=== PATIENT | female | born 1950 | race Caucasian/White ===

== ENCOUNTER 2017-08-19 17:47 | Inpatient (IN) | payer OTHER ==
[~2017-08-19] VITALS: Ht 170.2 cm; Wt 80.1 kg
[2017-08-19] VITALS (13 sets, daily range): BP systolic 84–166; BP diastolic 61–124
--- NOTE | ~2017-08-19 | EKG ---
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
--- NOTE | ~2017-08-19 | HC ---
[facility] [place] [address] CONSULTATION Name: HEDY SIMON Room #: 417-I ADM IN M.R.#: [id number] Admission: 08/19/17 Attend Phys: Florencio Dowell DO Discharge: Date of : 48 Report #: [id number] THIS REPORT FOR: //name// CC: Florencio Melton ENDOCRINE CONSULT LOCATION: Room 417, [facility]. Patient of Dr. Dowell. SUBJECTIVE: A 67-year-old white female admitted for pneumonia. The patient is currently improving. She is on high dose intravenous corticosteroids. She gives a limited history and there is limited information available in the patient's records. She apparently has had diabetes for approximately 20 years and has been on insulin for approximately 3 years. She is not on any current oral medication. She has no information regarding recent hemoglobin A1c. She does check her sugar "rarely," but does not remember the type of machine or the recent values. She is apparently on some unknown dosage of NPH insulin twice daily and also regular insulin, but again the dosages are unknown as is the degree of control. She is not on a specific diet. Otherwise, she is unable to give much pertinent current medical information. Glucoses have been significantly elevated since admission starting out at approximately 400. The patient was admitted with a diagnosis of "ketoacidosis;" however, there is no recorded evidence of ketosis or acidosis, but only hyperglycemia. CURRENT MEDICATIONS: At the time of consultation included sliding scale lispro. The patient is also on aspirin, duloxetine, atorvastatin, guaifenesin, trazodone, enoxaparin, famotidine, nystatin, potassium, fentanyl, acetaminophen, ondansetron, levofloxacin, vancomycin and the corticosteroids as mentioned above. OBJECTIVE: LABORATORY DATA: Hemoglobin A1c is 11.5%. Sodium 141, potassium 3.5, chloride 109, CO2 of 22, BUN 24, creatinine 7, glucose most recently was 221 on the sliding scale lispro as mentioned above, calcium 7.6, bilirubin 1.3, phosphorus 2.0, magnesium 2.1, alkaline phosphatase 81, SGPT 20, total protein 6.2, albumin 2.0. PHYSICAL EXAMINATION: VITAL SIGNS: Well-nourished, well-developed, obese 67-year-old white female, in no acute distress. The patient is alert and oriented x 3. VITAL SIGNS: She is afebrile. Height is reported to be 5 feet 7 and the patient is reported to weigh 190 pounds, heart rate 70 and regular, [place] [address] CONSULTATION Name: HEDY SIMON [facility].#: [id number] Admission: 08/19/17 Attend Phys: Florencio Dowell DO Discharge: Date of : 48 Report #: [id number] pressure 150/70. SKIN: Warm and moist without abnormalities. EYES: PERRL. CHEST: Shows scattered rhonchi, clearing with cough. HEART: Regular rhythm without murmurs, rubs or gallops. ABDOMEN: Benign. EXTREMITIES: Show trace pitting pedal edema bilaterally. NEUROLOGIC: Grossly intact. ASSESSMENT: 1. Diabetes mellitus, out of control, aggravated by obesity and most recently by infection and high dose corticosteroids. 2. Exogenous obesity with insulin resistance and hyperinsulinemia. PLAN: 1. Will evaluate more recent prior controlled hemoglobin A1c. 2. Will readjust diet with appropriate caloric restriction and dietary education. 3. Will initiate prandial lispro and basal glargine in an effort to improve glucose control and switch the patient over to a more appropriate and more efficacious insulin regimen than her prior NPH and regular insulin, and will attempt to convince her of the need for improved compliance in all areas to improve glucose control. Thank you very much for this consultation. I will continue to follow the patient with you for evaluation and treatment of diabetes mellitus. <ELECTRONICALLY SIGNED> By: Dion Barakat MD 08/23/17 1108 1336 1522 Dion Barakat MD /nt
--- NOTE | ~2017-08-19 | HC ---
[facility] [address] [address] CONSULTATION Name: HEDY SIMON Room #: 417-I [facility] IN .R.#: [id number] Admission: 08/19/17 Attend Phys: Florencio Dowell DO Discharge: Date of : 48 Report #: [id number] THIS REPORT FOR: //name// CC: Florencio Melton DATE OF SERVICE: 08/19/2017 REFERRING PROVIDER: Shantal Berry. REASON FOR CONSULTATION: Hypoxemic respiratory failure. CHIEF COMPLAINT: Shortness of breath. HISTORY OF PRESENT ILLNESS: Our group was asked to evaluate the patient urgently this evening due to significant hypoxemia. A pleasant 67-year-old woman with past pulmonary history significant for mild asthma and obstructive sleep apnea, has been in her usual state of health; however, about 10 days ago, had returned from a trip overseas to [facility] and came back with what sounds like influenza, was seen at urgent care with her primary care provider's office, was instructed she had influenza, started on Tamiflu, which she has been taking but continued to have some decline in overall health. did improve on similar treatment. She noted some green sputum ongoing. No significant fevers or chills. Some sweats. Also had stopped taking her insulin about 1 week ago because she had decreased appetite and not eating, presented to the Emergency Department with significant difficulties with lethargy, weakness and cough, was found to have profound hyperglycemia and metabolic acidosis, subsequently admitted, placed on DKA protocol and antibiotics for pneumonia, currently in bed, resting comfortably, however, has had high oxygen requirements since admission. ALLERGIES: include CLARITHROMYCIN. PAST MEDICAL HISTORY: 1. History of diabetes mellitus type 2, but takes insulin only she states for management. 2. History of asthma, severity not quantified. 3. Obstructive sleep apnea, on nocturnal CPAP. 4. Hypertension. 5. Hyperlipidemia. OUTPATIENT MEDICATIONS: Include trazodone, Tamiflu, lisinopril/hydrochlorothiazide, duloxetine, atorvastatin, guaifenesin, aspirin, and insulin. SOCIAL HISTORY: Very remote history of tobacco use. No alcohol consumption of [facility] [address] [place] [address] CONSULTATION Name: HEDY SIMON Room #: 417-I [facility] IN ..#: [id number] Admission: 08/19/17 Attend Phys: Florencio Dowell DO Discharge: Date of : 48 Report #: [id number] significance. Currently retired. Lives with her . FAMILY HISTORY: Negative for any significant pulmonary disease. REVIEW OF SYSTEMS: CONSTITUTIONAL: Some general malaise. No fevers, chills or sweats. ENT: Some upper respiratory congestion, no rhinorrhea, dysphagia or epistaxis. CARDIOVASCULAR: Some chest pain with coughing. GASTROINTESTINAL: No nausea, vomiting, abdominal pain or diarrhea. GENITOURINARY: No dysuria, no frequency or hematuria. INTEGUMENT: Denies any rash. MUSCULOSKELETAL: Denies any joint pains or swelling. Some generalized weakness and malaise. PHYSICAL EXAMINATION: VITAL SIGNS: Afebrile, pulse 100, respiratory rate 20, blood pressure 148/63, oxygen saturation 99% on nonrebreather mask. GENERAL: This is an obese, elderly woman, does not appear in any distress. HEENT: Clear oropharynx. NECK: Supple, no lymphadenopathy. LUNGS: Coarse rhonchi heard on inspiration and expiration. CARDIOVASCULAR: Heart was regular. No murmurs noted. ABDOMEN: Soft, nontender, no masses. EXTREMITIES: Without significant edema. INTEGUMENT: Without rash. LABORATORY DATA: Sodium 139, potassium 2.9, chloride 101, bicarbonate 28, BUN 23, creatinine 0.9, glucose 206, albumin 2.3, glucose was 369. Urinalysis significant for elevated urine glucose, ketones, serum ketones pending. Arterial blood gas on nonrebreather mask revealed pH 7.42, pCO2 of 30, pO2 of 82 and bicarbonate of 19 and lactate 2.3. White blood cell count 8000, hemoglobin 14, hematocrit 41, platelet count 155, 24% band forms. IMPRESSION: 1. Pneumonia as evidenced by chest x-ray with basilar infiltrates. 2. Diabetic ketoacidosis. 3. Asthma with acute exacerbation. 4. Poorly controlled diabetes mellitus, likely at baseline, uncertain why she is on insulin only therapy. 5. Multiple electrolyte disturbances due to above. SUGGEST: 1. DKA protocol. 2. Hydration with IV fluids. 3. Noninvasive positive pressure ventilation with BiPAP overnight, particularly since the patient normally on Pap therapy with sleep. [address] [address] CONSULTATION Name: HEDY SIMON Room #: 417-I ADM IN M.R.#: [id number] Admission: 08/19/17 Attend Phys: Florencio Dowell DO Discharge: Date of : 48 Report #: [id number] 4. Systemic steroids. 5. Continue with current antibiotics. 6. Add vancomycin as the patient may have a post-influenza staph. 7. Check MRSA screen. 8. Sputum cultures. 9. Blood cultures. 10. Nasal swab for respiratory viral panel. 11. Continue Tamiflu. 12. Further recommendations to follow. Thank you for requesting our suggestions. Discussed with nursing and patient at the bedside. All questions answered. <ELECTRONICALLY SIGNED> By: Simone Randolph MD 08/23/17 1820 0023 1519 Simone Randolph MD /nt
[~2017-08-19 17:47] MED LIST: AMARYL4 MG PO; CHLORTHALIDONE25 MG PO; JANUMET XR 1001 EACH PO; KLOR-CON 1010 MEQ PO; LIPITOR 20 MG T20 M1 PO; LISINOPRIL5 MG PO; METFORMIN HCL500 MG PO; METOPROLOL SUCC50 MG PO
[2017-08-19 18:28] LABS: MCH 31.1 pg (26.0-34.0); MCHC 34.2 g/dL (28.0-37.0); MCV 90.9 fL (80.0-100.0); PLATELET COUNT 155 thou/uL (150-400); RBC 4.51 mil/uL (4.20-5.00); RDW 13.2 % (10.5-14.5); WBC 8.2 thou/uL (4.0-11.0)
[2017-08-19 18:33] LABS: BE(vivo) -4.1 mmol/L (-2 to +3); HCO3 19.2 mmol/L (22.0-26.0); PCO2 30.4 mmHg (35.0-45.0); PO2 82.5 mmHg (80.0-100.0); pH 7.418 (7.360-7.450); sO2 96.4 % (92.0-98.0)
[2017-08-19 18:41] LABS: ANION GAP 21 mmol/L (7-16); BUN 27 mg/dL (7-18); CALCIUM 8.8 mg/dL (8.5-10.1); CHLORIDE 90 mmol/L (98-107); CO2 21 mmol/L (21-32); CREATININE 1.1 mg/dL (0.6-1.0); GLUCOSE 479 mg/dL (74-106); POTASSIUM 3.6 mmol/L (3.5-5.1); SODIUM 132 mmol/L (136-145)
[2017-08-19] MEDS ORDERED: LISINOPRIL-HCT1 EACH PO (18:50)
[2017-08-19] MEDS ORDERED: OSELTAMIVIR PHO75 MG PO (18:50)
[2017-08-19] MEDS ORDERED: TRAZODONE HCL100 MG PO (18:50)
[2017-08-19] MEDS ORDERED: CYMBALTA60 MG PO (18:50)
[2017-08-19] MEDS ORDERED: MUCINEX1200 MG PO (18:51)
[2017-08-19] MEDS ORDERED: LIPITOR80 MG PO (18:51)
[2017-08-19 18:52] LABS: TROPONIN-I < 0.04 ng/mL (<0.06)
[2017-08-19] MEDS ORDERED: NOVOLIN R100 UNIT/3 (18:53)
[2017-08-19] MEDS ORDERED: ASPIR 8181 MG PO (18:53)
[2017-08-19] MEDS ORDERED: NOVOLIN N100 UNIT/3 (18:54)
[2017-08-19 19:02] LABS: ABSOLUTE NEUTROPHILS 7.1 thou/uL (1.4-8.2)
[2017-08-19 20:48] LABS: URINE BLOOD TRACE (Negative); URINE CLARITY CLEAR; URINE COLOR YELLOW; URINE GLUCOSE-RANDOM* 3+ (Negative); URINE KETONES 3+ (Negative); URINE LEUKOCYTES-REFLEX NEGATIVE (Negative); URINE NITRITE-REFLEX NEGATIVE (Negative); URINE PROTEIN (DIPSTICK) TRACE (Negative); URINE UROBILINOGEN 0.2 E.U./dl (0.2-1.0)
[2017-08-19 20:53] LABS: ICTOTEST (BILI CONFIRMATORY) Negative (Negative); URINE BILIRUBIN NEGATIVE (Negative)
[2017-08-19 21:56] LABS: ALBUMIN 3.2 g/dL (3.4-5.0); CALCIUM 8.7 mg/dL (8.5-10.1); CREATININE 1.2 mg/dL (0.6-1.0); PHOSPHORUS 3.4 mg/dL (2.5-4.9); POTASSIUM 3.6 mmol/L (3.5-5.1)
[2017-08-19 23:46] LABS: ALBUMIN 2.3 g/dL (3.4-5.0); CALCIUM 7.5 mg/dL (8.5-10.1); CREATININE 0.9 mg/dL (0.6-1.0); PHOSPHORUS 1.6 mg/dL (2.5-4.9)
[2017-08-19 23:47] LABS: POTASSIUM 2.9 mmol/L (3.5-5.1)
[2017-08-20] VITALS (29 sets, daily range): BP systolic 110–155; BP diastolic 51–107
[2017-08-20 04:18] LABS: HEMATOCRIT 33.8 % (37.0-47.0); MCH 30.9 pg (26.0-34.0); MCHC 35.1 g/dL (28.0-37.0); PLATELET COUNT 126 thou/uL (150-400); RBC 3.84 mil/uL (4.20-5.00); RDW 13.1 % (10.5-14.5); WBC 7.5 thou/uL (4.0-11.0)
[2017-08-20 04:33] LABS: ALBUMIN 2.4 g/dL (3.4-5.0); CALCIUM 7.8 mg/dL (8.5-10.1); CREATININE 0.7 mg/dL (0.6-1.0); MAGNESIUM 1.8 mg/dL (1.8-2.4); PHOSPHORUS 1.1 mg/dL (2.5-4.9); TOTAL BILIRUBIN 1.3 mg/dL (<0.1-1.0); TOTAL PROTEIN 6.2 g/dL (6.4-8.2)
[2017-08-20 04:34] LABS: HEMOGLOBIN 11.8 gm/dL (12.0-15.0); POTASSIUM 3.9 mmol/L (3.5-5.1)
[2017-08-20 05:10] LABS: ABSOLUTE NEUTROPHILS 6.1 thou/uL (1.4-8.2); METAMYELOCYTES 1 %
[2017-08-20 08:38] LABS: BE(vivo) -0.4 mmol/L (-2 to +3); HCO3 22.4 mmol/L (22.0-26.0); PCO2 30.9 mmHg (35.0-45.0); PO2 268.3 mmHg (80.0-100.0); pH 7.478 (7.360-7.450); sO2 99.7 % (92.0-98.0)
[2017-08-20 08:50] LABS: ALBUMIN 2.3 g/dL (3.4-5.0); CREATININE 0.7 mg/dL (0.6-1.0); PHOSPHORUS 1.5 mg/dL (2.5-4.9); POTASSIUM 3.8 mmol/L (3.5-5.1)
[2017-08-20 13:41] LABS: ALBUMIN 2.3 g/dL (3.4-5.0); CALCIUM 7.3 mg/dL (8.5-10.1); CREATININE 0.7 mg/dL (0.6-1.0); MAGNESIUM 1.9 mg/dL (1.8-2.4); PHOSPHORUS 1.5 mg/dL (2.5-4.9); POTASSIUM 3.7 mmol/L (3.5-5.1)
[2017-08-20 17:16] LABS: ALBUMIN 2.3 g/dL (3.4-5.0); CALCIUM 7.6 mg/dL (8.5-10.1); CREATININE 0.7 mg/dL (0.6-1.0); PHOSPHORUS 1.6 mg/dL (2.5-4.9); POTASSIUM 4.2 mmol/L (3.5-5.1)
[2017-08-20 20:56] LABS: ALBUMIN 1.9 g/dL (3.4-5.0); CALCIUM 7.2 mg/dL (8.5-10.1); CREATININE 0.8 mg/dL (0.6-1.0); MAGNESIUM 1.8 mg/dL (1.8-2.4); PHOSPHORUS 1.7 mg/dL (2.5-4.9); POTASSIUM 3.5 mmol/L (3.5-5.1)
[2017-08-21] VITALS (13 sets, daily range): BP systolic 109–163; BP diastolic 49–109
[2017-08-21 01:01] LABS: ALBUMIN 1.9 g/dL (3.4-5.0); CALCIUM 7.1 mg/dL (8.5-10.1); CREATININE 0.8 mg/dL (0.6-1.0); PHOSPHORUS 1.6 mg/dL (2.5-4.9); POTASSIUM 3.5 mmol/L (3.5-5.1)
[2017-08-21 05:05] LABS: HEMATOCRIT 32.4 % (37.0-47.0); HEMOGLOBIN 11.2 gm/dL (12.0-15.0); MCHC 34.5 g/dL (28.0-37.0); MCV 89.7 fL (80.0-100.0); PLATELET COUNT 144 thou/uL (150-400); RBC 3.61 mil/uL (4.20-5.00); WBC 10.9 thou/uL (4.0-11.0)
[2017-08-21 05:27] LABS: CALCIUM 7.4 mg/dL (8.5-10.1); CREATININE 0.8 mg/dL (0.6-1.0); POTASSIUM 3.7 mmol/L (3.5-5.1)
[2017-08-21 06:21] LABS: ABSOLUTE NEUTROPHILS 9.6 thou/uL (1.4-8.2); METAMYELOCYTES 2 %; NUCLEATED RBCS 1 /100WBC; PROMYELOCYTES 1 %
[2017-08-21 11:41] LABS: CALCIUM 7.7 mg/dL (8.5-10.1); CREATININE 0.8 mg/dL (0.6-1.0); MAGNESIUM 2.1 mg/dL (1.8-2.4); POTASSIUM 3.7 mmol/L (3.5-5.1)
[2017-08-21 16:13] LABS: GLYCOHEMOGLOBIN (HGB A1C) 11.6 % (4.8-5.6)
[2017-08-22 03:39] VITALS: BP 138/67
[2017-08-22 06:39] LABS: HEMATOCRIT 32.5 % (37.0-47.0); HEMOGLOBIN 11.2 gm/dL (12.0-15.0); MCH 30.9 pg (26.0-34.0); MCHC 34.5 g/dL (28.0-37.0); MCV 89.6 fL (80.0-100.0); PLATELET COUNT 157 thou/uL (150-400); RBC 3.63 mil/uL (4.20-5.00); WBC 16.5 thou/uL (4.0-11.0)
[2017-08-22 06:47] LABS: CALCIUM 7.6 mg/dL (8.5-10.1); CREATININE 0.7 mg/dL (0.6-1.0); POTASSIUM 3.5 mmol/L (3.5-5.1)
[2017-08-22 07:00] VITALS: BP 152/74
[2017-08-22 08:53] LABS: ABSOLUTE NEUTROPHILS 13.9 thou/uL (1.4-8.2); METAMYELOCYTES 2 %; MYELOCYTES 2 %; PLATELET ESTIMATE NORMAL
[2017-08-22 16:45] VITALS: BP 175/100
[2017-08-22 20:10] VITALS: BP 167/96
[2017-08-23 04:05] VITALS: BP 158/91
[2017-08-23 08:10] VITALS: BP 173/90
[2017-08-23 10:11] LABS: HEMATOCRIT 36.2 % (37.0-47.0); HEMOGLOBIN 12.3 gm/dL (12.0-15.0); MCH 30.1 pg (26.0-34.0); MCHC 34.1 g/dL (28.0-37.0); MCV 88.3 fL (80.0-100.0); RBC 4.1 mil/uL (4.20-5.00); RDW 13.3 % (10.5-14.5); WBC 21.9 thou/uL (4.0-11.0)
[2017-08-23 10:26] LABS: CALCIUM 7.8 mg/dL (8.5-10.1); CREATININE 0.8 mg/dL (0.6-1.0); MAGNESIUM 1.8 mg/dL (1.8-2.4); POTASSIUM 3.6 mmol/L (3.5-5.1)
[2017-08-23 19:57] VITALS: BP 150/80
[2017-08-24 04:12] VITALS: BP 129/58
[2017-08-24 05:21] LABS: CALCIUM 7.4 mg/dL (8.5-10.1); CREATININE 0.7 mg/dL (0.6-1.0); MAGNESIUM 1.7 mg/dL (1.8-2.4); POTASSIUM 3.2 mmol/L (3.5-5.1)
[2017-08-24 05:31] LABS: HEMATOCRIT 37.2 % (37.0-47.0); HEMOGLOBIN 12.4 gm/dL (12.0-15.0); MCH 29.9 pg (26.0-34.0); MCHC 33.4 g/dL (28.0-37.0); MCV 89.7 fL (80.0-100.0); RBC 4.15 mil/uL (4.20-5.00); RDW 13.5 % (10.5-14.5)
[2017-08-24 07:15] VITALS: BP 134/62
[2017-08-24 07:16] VITALS: BP 134/62
[2017-08-24] MEDS ORDERED: NYAMYC15 GM TOP (17:28)
[2017-08-24] MEDS ORDERED: MUPIROCIN22 GM NASAL (17:28)
[2017-08-24] MEDS ORDERED: FAMOTIDINE 10 M10 MG PO (17:28)
[2017-08-24] MEDS ORDERED: LEVAQUIN 750 M750 MG PO (17:28)
[2017-08-24] MEDS ORDERED: PREDNISONE 20 M20 M1 PO (17:28)
[2017-08-24] MEDS ORDERED: NOVOLOG FL100 UNIT/M SUBQ (17:28)
[2017-08-24] MEDS ORDERED: PROBIOTIC1 EAC1 PO (17:28)
[2017-08-24] MEDS ORDERED: LEVEMIR SUBQ (17:28)
[2017-08-24] MEDS ORDERED: VENTOLIN HFA 1818 GM INH (17:33)
[2017-08-24 17:42] VITALS: BP 134/62
== END 2017-08-24 18:26 | disposition home or self-care (01) | DRG 871 ==
LOC: ER 17:47 → ICU 19:50 → EROBS 19:50 → ICU 21:25 → 4E 08-21 21:27 → ENTRNSPT 08-24 18:01 → 4E 08-24 18:26
PROVIDERS: Emergency Medicine; Family Medicine; Internal Medicine; Nurse Practitioner Family
PROC: 5A09357 Assistance with Respiratory Ventilation, Less than 24 Consecutive Hours, Continuous Positive Airway Pressure (ICD-10-PCS; principal; 2017-08-20)
PROC: 5A09357 Assistance with Respiratory Ventilation, Less than 24 Consecutive Hours, Continuous Positive Airway Pressure (ICD-10-PCS; 2017-08-21)
DX: A41.9 Sepsis, unspecified organism (principal); E11.10 Type 2 diabetes mellitus with ketoacidosis without coma; J18.9 Pneumonia, unspecified organism; J96.01 Acute respiratory failure with hypoxia; J45.901 Unspecified asthma with (acute) exacerbation; E11.65 Type 2 diabetes mellitus with hyperglycemia; G47.33 Obstructive sleep apnea (adult) (pediatric); I10 Essential (primary) hypertension; E78.5 Hyperlipidemia, unspecified; E66.09 Other obesity due to excess calories; G47.00 Insomnia, unspecified; Z79.899 Other long term (current) drug therapy; Z87.891 Personal history of nicotine dependence; Z68.27 Body mass index [BMI] 27.0-27.9, adult; Z98.49 Cataract extraction status, unspecified eye; Z88.1 Allergy status to other antibiotic agents; Z79.4 Long term (current) use of insulin
CPT/HCPCS: 10078; 10783

== ENCOUNTER 2020-12-08 17:50 | Inpatient (IN) | payer OTHER ==
[2020-12-08] VITALS (8 sets, daily range): BP systolic 124–160; BP diastolic 62–92
[~2020-12-08] VITALS: Ht 167.6 cm; Wt 82.8 kg
--- NOTE | ~2020-12-08 | EMS ---
[address] [address] EMS Patient Care Report Name: HEDY SIMON Room #: REG [facility]#: [id number] Admission: 12/08/20 Attend Phys: Discharge: Date of : 48 Report #: [id number] THIS REPORT FOR: //name// Report Transmitted: 12/08/2020 19:05 EMS Care Summary [facility] MED-ACT Incident [id number] @ 12/08/2020 17:07 Incident Location [address] [place] [address] Patient HEDY SIMON Female, 70 Years 1950 Patient Address [address] [place] [address] Patient History Diabetes, Chief Complaint Altered Mental Status Disposition Transported No Lights/Ethel Dispatch Reason Falls Transported To [facility] Narrative On EMS arrival, pt found lying supine on the floor incontinent of urine and stool. Pt's reports that the last time he saw her was around 1800 last night. He reports that she tends to sleep in and he got worried about her so he went to check on her, finding her on the floor. He reports that the pt was acting normal last night and had no complaints at the time. He also reports the pt is a poorly managed diabetic as well. Pt is painfully responsive at this time. Pt has non-purposeful movements and repeatedly unintentionally moves the mask placed on her face. Pt's skin was very dry and pt was found to [address] [place] [address] EMS Patient Care Report Name: HEDY SIMON Room #: [facility].#: [id number] Admission: 12/08/20 Attend Phys: Discharge: Date of : 48 Report #: [id number] have a "Hi" reading on the glucometer. Pt showed no signs of outward injury and nothing was found on physical exam. Pt was rolled and placed on a tarp and moved downstairs to the cot. En route, an IV was started and the pt was given 500cc's of normal saline. Pt was also shivering at this time and did say one understandable word, "Cold." Pt was covered more and heat was turned up at this point. Accurate vitals were difficult to obtain due to pt's shivering and non-purposeful movements. Pt transported to ED room 12. Pt transferred to ED bed via sheet drag. Pt left with rails up and staff in attendance. Nurse in ED reports pt looks familiar and states "I think she's been in here for DKA before." Initial Vitals @17:35P: 125,BP: 84/65,SpO2: 95, @17:29P: 76,Glucose: -2,SpO2: 68, @17:35SpO2: 90,WI Suspected: false @17:42P: 124,BP: 154/107,SpO2: 93, @PTAP: 110,R: 20,BP: 147/79,Pain: 0/10,GCS: 8,Temp: 98.2F,Glucose: -2,SpO2: 95,Revised Trauma: 10, Assessments @17:16MENTAL:Person Oriented,Time Oriented,Place Oriented,Event Oriented,SKIN:Pale,Other,HEENT:Eyes: Left Pupil: 3-mm,Eyes: Right Pupil: 3-mm,Head/Face: No Abnormalities,Neck/Airway: No Abnormalities,LUNG SOUNDS:ABDOMEN:PELVIS//GI:Incontinence,EXTREMITIES:PULSE:NEURO: Impression Diabetic Hyperglycemia Procedures @17:20Surgical Mask on Patient@17:3512-Lead ECGResponse: UnchangedSucceeded@17:28Normal Saline (.9% NaCl) 500cc (20 ga) Site: Hand-RightResponse: UnchangedSucceeded Timeline MACHINE SET UP,BP: 147/79 M,PULSE: 110,RR: 20 R,SPO2: 95 Ox,ETCO2: ,BG: -2,PAIN: 0,GCS: 8, 17:05,Call Received 17:05,Psap Call 17:07,Dispatched 17:08,En Route 17:13,On Scene 17:15,At Patient 17:20,Surgical Mask on Patient, 17:28,Normal Saline (.9% NaCl) 500cc 20 ga Site: Hand-Right,Response: UnchangedSucceeded, [address] [address] EMS Patient Care Report Name: HEDY SIMON Room #: REG [place]#: [id number] Admission: 12/08/20 Attend Phys: Discharge: Date of : 48 Report #: [id number] 17:29,BP: / M,PULSE: 76,RR: R,SPO2: 68 Ox,ETCO2: ,BG: -2,PAIN: ,GCS: , 17:34,Depart Scene 17:35,12-Lead ECG,Response: UnchangedSucceeded, 17:35,BP: / M,PULSE: ,RR: R,SPO2: 90 Ox,ETCO2: ,BG: ,PAIN: ,GCS: , 17:35,BP: 84/65 M,PULSE: 125,RR: R,SPO2: 95 Ox,ETCO2: ,BG: ,PAIN: ,GCS: , 17:42,BP: 154/107 M,PULSE: 124,RR: R,SPO2: 93 Ox,ETCO2: ,BG: ,PAIN: ,GCS: , 17:46,At Destination 18:27,Call Closed Disclaimer v1.1 Copyright 2020 [employer] This EMS Care Summary contains data elements from the applicable legal record (which may be displayed differently). It is designed to provide pertinent information for the following purposes: continuity of care, clinical quality, and state data reporting. The complete legal record is available to ED staff and administrators of the receiving hospital in [employer]'s Patient Tracker. All data is provided "as is."
--- NOTE | ~2020-12-08 | HC ---
[facility] [place] [address] CONSULTATION Name: HEDY SIMON Room #: 361-P ADM IN M.R.#: [id number] Admission: 12/08/20 Attend Phys: Jonah Gardner MD Discharge: Date of : 48 Report #: [id number] THIS REPORT FOR: cc: Gina Melton MD, Julie MD Khosla,Ty Vail MD ~ DOC #: [id number] Ty Matt MD DATE OF SERVICE: 12/10/2020 HISTORY OF PRESENT ILLNESS: A 70-year-old female patient who was seen by me because of speech difficulty was noticed on her today and consultation is evaluate the patient for a CVA. Patient does not provide any reliable history. I called the number for the , but he did not answer. So history is from the record. It looks like this patient has numerous metabolic problems. She was brought to the emergency room after a fall, but when she came there looks like her blood sugar was very high. She also has sepsis. She is being followed by ID. All along, it was noted that she was severely encephalopathic. It was noticed that she was having some speech difficulty and suggestion of aphasia that is why Neurology consultation was requested. She is able to talk, but does not give any reliable history. Diagnosis, which has been considered here is diabetic ketoacidosis, acute kidney injury, hypoxemic respiratory failure. Her sodium is somewhat high and she has been found to have new onset of atrial fibrillation as I understand from the records. REVIEW OF SYSTEMS: This is a relevant 14 point review of system I can get in this patient looks like multiple cardiology consultant is following this patient. PAST MEDICAL HISTORY: Unavailable from the patient. I do not know what the cognitive status is and I cannot reach the patient's to see what the premorbid cognitive status was. FAMILY AND SOCIAL HISTORY: Unavailable except for the fact that she is . PHYSICAL EXAMINATION: Pretty limited. She is awake. She talks. She becomes frustrated pretty soon and sometimes she follows simple commands. Her mentation is not good enough to do any good neurological examination on this patient, but I think she can move both sides. I do not know about hemianopsia, but does not look like she has a facial palsy. Her blood pressure is running about 149/68, pulse is 75, temperature is 97.8. LABORATORY DATA: White count is high, platelet count is somewhat low. Her MRI was scheduled, but for some reason is not done yet. We will check what happen tomorrow. IMPRESSION AND PLAN: This patient probably has encephalopathy. I think it will [address] [address] CONSULTATION Name: HEDY SIMON Dodie Room #: 361-[facility] IN .R.#: [id number] Admission: 12/08/20 Attend Phys: Jonah Gardner MD Discharge: Date of : 48 Report #: [id number] be desirable to exclude the possibility of CVA in this patient, especially in light of the fact that she has a new atrial fibrillation. Her MRI was scheduled, but this is not done yet and we will check tomorrow what happened. I will ask Dr. Akhtar to follow up this patient with you from tomorrow. Thank you very much for this referral. MD NNEKA Leonardo/HAIR By: [id number] [id number] Ty Matt MD /nt
[~2020-12-08 17:50] MED LIST changes: +ASPIR 8181 MG PO; +CYMBALTA60 MG PO; +FAMOTIDINE 10 M10 MG PO; +LEVAQUIN 750 M750 MG PO; +LEVEMIR SUBQ; +LIPITOR80 MG PO; +LISINOPRIL-HCT1 EACH PO; +MUCINEX1200 MG PO; +MUPIROCIN22 GM NASAL; +NOVOLIN N100 UNIT/3; +NOVOLIN R100 UNIT/3; +NOVOLOG FL100 UNIT/M SUBQ; +NYAMYC15 GM TOP; +OSELTAMIVIR PHO75 MG PO; +PREDNISONE 20 M20 M1 PO; +PROBIOTIC1 EAC1 PO; +TRAZODONE HCL100 MG PO; +VENTOLIN HFA 1818 GM INH
[2020-12-08 18:06] LABS: BE(vivo) -12.1 mmol/L (-2 to +3); HCO3 12.4 mmol/L (22.0-26.0); PCO2 26.4 mmHg (35.0-45.0); pH 7.291 (7.360-7.450); sO2 92.3 % (92.0-98.0)
[2020-12-08 18:18] LABS: URINE BILIRUBIN NEGATIVE (Negative); URINE BLOOD 2+ (Negative); URINE CLARITY CLEAR; URINE COLOR YELLOW; URINE GLUCOSE-RANDOM* 3+ (Negative); URINE KETONES 1+ (Negative); URINE LEUKOCYTES-REFLEX NEGATIVE (Negative); URINE NITRITE-REFLEX NEGATIVE (Negative); URINE PROTEIN (DIPSTICK) 3+ (Negative); URINE UROBILINOGEN 0.2 E.U./dl (0.2-1.0)
[2020-12-08 18:28] LABS: AMP/METHAMP Negative (Negative); BARBITURATES Negative (Negative); BENZODIAZEPINES Negative (Negative); COCAINE Negative (Negative); METHADONE Negative (Negative); OPIATES Negative (Negative); PCP Negative (Negative)
[2020-12-08 18:30] LABS: FINE GRANULAR CASTS 0-3 Few /LPF (None Seen)
[2020-12-08 18:31] LABS: CRYSTALS None Seen /LPF (None Seen); SQUAMOUS 0-3 Few /LPF (0-3); URINE RBC 3-10 Few /HPF (NONE SEEN); URINE WBC-REFLEX 6-15 Few /HPF (0-5)
[2020-12-08 18:43] LABS: ABSOLUTE NEUTROPHILS 15.2 thou/uL (1.4-8.2); BASOPHILS 0.4 % (0.0-2.0); HEMATOCRIT 48.4 % (37.0-47.0); HEMOGLOBIN 15.7 gm/dL (12.0-15.0); LYMPHOCYTES 3.7 % (24.0-44.0); MCH 30.9 pg (26.0-34.0); MCHC 32.3 g/dL (28.0-37.0); MCV 95.5 fL (80.0-100.0); MONOCYTES 3.4 % (1.0-8.0); PLATELET COUNT 234 thou/uL (150-400); POLYS 92.5 % (36.0-66.0); RBC 5.07 mil/uL (4.20-5.00); RDW 13.5 % (10.5-14.5); WBC 16.4 thou/uL (4.0-11.0)
[2020-12-08 19:06] LABS: ALBUMIN 3.3 g/dL (3.4-5.0); CALCIUM 9.4 mg/dL (8.5-10.1); CREATININE 2.1 mg/dL (0.6-1.0); DIRECT BILIRUBIN 0.2 mg/dL (<0.1-0.2); MAGNESIUM 2.2 mg/dL (1.8-2.4); PHOSPHORUS 6.8 mg/dL (2.6-4.7); POTASSIUM 4.3 mmol/L (3.5-5.1); TOTAL BILIRUBIN 1.2 mg/dL (0.2-1.0); TOTAL PROTEIN 7.4 g/dL (6.4-8.2); TROPONIN-I 0.27 ng/mL (<0.06)
--- NOTE | 2020-12-08 23:52 | NUR ---
PT TRANSPORTED FROM ER TO ICU 244 @ 2230. PT IS STILL UNRESPONSIVE AND UNABLE TO SIGN CONSENTS OR PARTICIPATE IN CARE. PT IS CURRENTLY ON DKA PROTOCOL. RN SPOKE TO JOSELO PEREZ CIRCUS ROUSTABOUT AND SPOKE TO HER. SHE WANTS TO DO DKA PROTOCOL BUT INSTEAD OF RUNNING FLUIDS AT 250 RUN IT AT 150ML/HR AND GIVE ONE TIME DOSE OF LASIX. SHE IS MORE CONCERNED ABOUT CONTROLLING HER DKA FIRST AND IS OK WITH HOLDING OFF HER ABX UNTIL LATER. CIRCUS ROUSTABOUT IS AWARE TO PT HAS ONLY A SINGLE IV 22 AND IS OK WITH PUTTING IN CONSULT FOR VASCULAR TEAM BUT IS ASKING IF SOMEONE FROM ED TO START ANOTHER LINE RN/OR PHYSICIAN. ICU X 2 HAVE TRIED MULTIPLE TIMES WITH NO LUCK. CONTINUE WITH PLAN OF CARE
[2020-12-09] VITALS (56 sets, daily range): BP systolic 116–171; BP diastolic 51–114
[2020-12-09 00:09] LABS: ALBUMIN 2.8 g/dL (3.4-5.0); CALCIUM 8.6 mg/dL (8.5-10.1); CREATININE 2.2 mg/dL (0.6-1.0); MAGNESIUM 1.9 mg/dL (1.8-2.4); PHOSPHORUS 2.7 mg/dL (2.5-4.9); POTASSIUM 3.9 mmol/L (3.5-5.1)
[2020-12-09] MEDS ORDERED: ROSUVASTATIN CA20 MG (00:51)
[2020-12-09] MEDS ORDERED: JANUMET XR 1001 EACH (00:52)
[2020-12-09] MEDS ORDERED: DONEPEZIL HCL 55 M1 (00:53)
[2020-12-09] MEDS ORDERED: BASAGLAR K100 UNIT/1 SQ (00:56)
[2020-12-09] MEDS ORDERED: BENTYL 10 MG CA10 M1 (00:56)
[2020-12-09] MEDS ORDERED: LISINOPRIL5 MG PO (00:58)
[2020-12-09 04:39] LABS: ALBUMIN 2.8 g/dL (3.4-5.0); CALCIUM 9.1 mg/dL (8.5-10.1); CREATININE 2.1 mg/dL (0.6-1.0); PHOSPHORUS 1.9 mg/dL (2.6-4.7); POTASSIUM 3.3 mmol/L (3.5-5.1)
--- NOTE | 2020-12-09 06:37 | EKG ---
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: : 1950 Requested By: Ata Lema Order Number: [id number] MD: Simone Laboy Measurements Intervals [place] Rate: 125 P: 0 PA: 81 QRS: 38 QRSD: 147 T: 135 QT: 399 QTc: 576 Interpretive Statements Sinus tachycardia Left bundle branch block Compared to ECG 08/19/2017 18:13:20 Left bundle-branch block now present Atrial premature complex(es) no longer present Electronically Signed On 12-09-2020 6:37:28 CDT by Simone Laboy [email or web address] <ELECTRONICALLY SIGNED> By: Simone Laboy MD, [facility] 12/09/20 0637 06 06 Simone Laboy MD, [facility] /EPI
--- NOTE | 2020-12-09 11:00 | NUR ---
chart review. discussed during los and am rounds. possible will be able to dc home in few days. lives home with her spouse. has chest tube, id consulted. unable to visit with her rt resting in room with eyes closed. will cont following as needed for dc needs. no visitor at bedside.
--- NOTE | 2020-12-09 11:36 | EKG ---
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: SANTOS : 1950 Requested By: Shantal Berry Order Number: [id number] : Simone Laboy Measurements Intervals [place] Rate: 140 P: -49 WI: 41 QRS: 103 QRSD: 146 T: -63 QT: 350 QTc: 534 Interpretive Statements AFIB Prolonged QT interval Baseline wander in lead(s) III,aVL,V1 Compared to ECG 12/08/2020 18:07:29 Prolonged QT interval now present Electronically Signed On 12-09-2020 11:35:48 CDT by Simone Laboy [email or web address] <ELECTRONICALLY SIGNED> By: Simone Laboy MD, [facility] 12/09/20 1135 0645 0645 Simone Laboy MD, [facility] /EPI
--- NOTE | 2020-12-09 11:38 | EKG ---
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: GALA : 1950 Requested By: Simone Laboy Order Number: [id number] MD: Simone Laboy Measurements Intervals [place] Rate: 83 P: 67 NV: 130 QRS: 85 QRSD: 157 T: -75 QT: 467 QTc: 549 Interpretive Statements Sinus rhythm Left ventricular hypertrophy Anterior Q waves, possibly due to LVH Prolonged QT interval Compared to ECG 12/09/2020 06:45:49 Left ventricular hypertrophy now present Q waves now present Sinus tachycardia no longer present Electronically Signed On 12-09-2020 11:38:02 CDT by Simone Laboy [email or web address] <ELECTRONICALLY SIGNED> By: Simone Laboy MD, [facility] 12/09/20 1138 1053 1053 Simone Laboy MD, [facility] /EPI
--- NOTE | 2020-12-09 13:32 | NUR ---
DR. REYNA CHU. RE. PT AGITATED. WORD SALAD. AWAITING CALL BACK
--- NOTE | 2020-12-09 13:33 | NUR ---
DR. CHOU PAGED. RE HEPARIN ORDERED BUT PT EXTREMELY AGGITATED AND HAVING WORD SALAD. MOVING ALL EXTREMITIES EQUALLY .
--- NOTE | 2020-12-09 14:03 | NUR ---
VAT CONSULTED FOR PICC LINE. DISCUSSED WITH PRIMARY RN SALO, OFF MANY OF MEDS AND HAS ADEQUATE PIV'S. PICC NO LONGER NEEDED AT PRESENT
--- NOTE | 2020-12-09 14:21 | 2DMMODE ---
[facility] [place] [address] 2 D/M-MODE ECHOCARDIOGRAM Name: HEDY SIMON Room #: 244-P ADM IN M.R.#: [id number] Admission: 12/08/20 Attend Phys: Jonah Gardner MD Discharge: Date of : 46 Report #: [id number] THIS REPORT FOR: cc: Gina Melton MD,Simone Damon MD, MD [facility] ~ APPROVED REPORT Study performed: 12/09/2020 12:18:57 EXAM: Comprehensive 2D, Doppler, and color-flow Echocardiogram Patient Location: ICU Room #: 244 Status: routine BSA: 1.75 HR: 82 bpm BP: 126/60 mmHg Rhythm: Atrial Fibrillation Other Information Study Quality: Adequate Indications Diabetes Atrial Fibrillation Hypertension/HDD 2D Dimensions RVDd: 34.64 mm IVSd: 11.57 (7-11mm) LVOT Diam: 19.06 (18-24mm) LVDd: 59.13 mm PWd: 11.96 (7-11mm) Ascending Ao: 25.73 (22-36mm) LVDs: 49.10 (25-40mm) Left Atrium: 26.68 (27-40mm) Aortic Root: 27.40 mm Volumes Left Atrial Volume (Systole) Single Plane 4CH: 39.75 mL Single Plane 2CH: 60.18 mL LA ESV Index: 32.00 mL/m2 Aortic Valve AoV Peak Magan.: 1.61 m/s AO Peak Gr.: 10.39 mmHg LVOT Max P.09 mmHg [facility] [address] [place] [address] 2 D/M-MODE ECHOCARDIOGRAM Name: HEDY SIMON Room #: 244-P [facility] IN ..#: [id number] Admission: 12/08/20 Attend Phys: Jonah Gardner MD Discharge: Date of : 46 Report #: [id number] LVOT Max V: 1.13 m/s MIGDALIA Vmax: 2.00 cm2 Mitral Valve E/A Ratio: 0.7 MV Decel. Time: 168.76 ms MV E Max Magan.: 0.84 m/s MV A Magan.: 1.17 m/s MV PHT: 48.94 ms IVRT: 152.25 ms Pulmonary Valve PV Peak Magan.: 1.27 m/s PV Peak Gr.: 6.42 mmHg Pulmonary Vein P Vein S: 0.30 m/s P Vein A: 0.35 m/s P Vein D: 0.25 m/s P Vein A Dur.: 106.1 msec P Vein S/D Ratio: 1.20 Left Ventricle Left ventricle is dilated. Mild concentric left ventricular hypertrophy. Left ventricular ejection fraction is moderately decreased. LVEF is 35%. Grade I - abnormal relaxation pattern. Right Ventricle The right ventricle is normal size. The right ventricular systolic function is normal. Atria The left atrium size is normal. The right atrium size is normal. Aortic Valve The aortic valve is normal in structure. The Aortic valve is sclerotic. No aortic regurgitation is present. There is no aortic valvular stenosis. Mitral Valve The mitral valve is normal in structure. Trace to mild mitral regurgitation. No evidence of mitral valve stenosis. Tricuspid Valve The tricuspid valve is normal in structure. There is no tricuspid valve regurgitation noted. Pulmonic Valve [facility] [address] [place] [address] 2 D/M-MODE ECHOCARDIOGRAM Name: HEDY SIMON Dodie Room #: 244-P ADM IN M.R.#: [id number] Admission: 12/08/20 Attend Phys: Jonah Gardner MD Discharge: Date of : 46 Report #: [id number] The pulmonary valve is normal in structure. There is no pulmonic valvular regurgitation. Great Vessels The aortic root is normal in size. IVC is not well visualized. Pericardium There is no pericardial effusion. <Conclusion> Left ventricle mildly dilated/normal wall thickness Global hypokinesis ejection fraction 35% Grade 1 diastolic dysfunction Normal right ventricular size/function Normal atrial size Color-flow Doppler study was performed of the aortic/mitral/tricuspid/pulmonary valve Aortic valve sclerosis without stenosis Mild mitral valve insufficiency No tricuspid valve insufficiency No pericardial effusion Normal aortic root size. <ELECTRONICALLY SIGNED> By: Simone Laboy MD, [facility] 12/09/201420 20 20 Simone Laboy MD, [facility] /INF
[2020-12-09 16:46] LABS: BUN 42 mg/dL (7-18); CHLORIDE 112 mmol/L (98-107); PHOSPHORUS 2.7 mg/dL (2.6-4.7)
[2020-12-09 16:49] LABS: ALBUMIN 2.8 g/dL (3.4-5.0); ANION GAP 15 mmol/L (7-16); CALCIUM 8.5 mg/dL (8.5-10.1); CO2 21 mmol/L (21-32); CREATININE 1.7 mg/dL (0.6-1.0); GLUCOSE 365 mg/dL (74-106); SODIUM 148 mmol/L (136-145); TROPONIN-I 0.26 ng/mL (<0.06)
[2020-12-09 16:52] LABS: POTASSIUM 4.9 mmol/L (3.5-5.1)
[2020-12-09 17:35] LABS: PROTIME 10.9 Seconds (10.5-12.1)
--- NOTE | 2020-12-09 20:04 | NUR ---
PT NOT PROGRESSING TOWARDS GOALS. VERY CONFUSED. TRYING TO GET OOB.. FAMILY AT BEDSIDE MOST OF THE DAY. CONSENT FOR PICC IN CHART. DIFFICULT LAB DRAW/
[2020-12-09 21:03] LABS: CHOLESTEROL 443 mg/dL (<200); HDL CHOLESTEROL 76 mg/dL (>40); LDL CHOLESTEROL 349 mg/dL (<100); TC:HDL 5.8 Ratio (Not establshd); TRIGLYCERIDE 94 mg/dL (<150); VLDL 19 mg/dL (<40)
[2020-12-10] VITALS (22 sets, daily range): BP systolic 128–166; BP diastolic 55–84
[2020-12-10 06:08] LABS: ABSOLUTE NEUTROPHILS 13.9 thou/uL (1.4-8.2); BASOPHILS 0.4 % (0.0-2.0); HEMATOCRIT 37.7 % (37.0-47.0); LYMPHOCYTES 9.9 % (24.0-44.0); MCH 30.4 pg (26.0-34.0); MCHC 33.3 g/dL (28.0-37.0); MCV 91.4 fL (80.0-100.0); MONOCYTES 6.3 % (1.0-8.0); POLYS 83.4 % (36.0-66.0); RBC 4.12 mil/uL (4.20-5.00); RDW 13.7 % (10.5-14.5); WBC 16.7 thou/uL (4.0-11.0)
[2020-12-10 06:13] LABS: HEMOGLOBIN 12.5 gm/dL (12.0-15.0); PLATELET COUNT 143 thou/uL (150-400)
[2020-12-10 06:22] LABS: ALBUMIN 2.4 g/dL (3.4-5.0); CALCIUM 8.3 mg/dL (8.5-10.1); CREATININE 1.4 mg/dL (0.6-1.0); PHOSPHORUS 2.4 mg/dL (2.5-4.9); TOTAL BILIRUBIN 0.5 mg/dL (0.2-1.0); TOTAL PROTEIN 5.6 g/dL (6.4-8.2)
[2020-12-10 06:23] LABS: POTASSIUM 3.1 mmol/L (3.5-5.1)
--- NOTE | 2020-12-10 11:10 | NUR ---
discussed during los and am rounds. cm visited with spouse claudio at bedside, mauricio resting with eyes closed, she does open her eyes with slow not clear sometimes verbal speech. intro to cm and dcp. she lives home with , independent prior to hospital, no dme, still drives, manage own medication. " guess was not manage insulin right"/claudio. going to mri and mra today. new orders for therapy, neuro consult. will cont following as needed for dc needs.
--- NOTE | 2020-12-10 11:42 | NUR ---
PATIENT ALERT TO SELF, STRUGGLES WITH EXPRESSIVE APHASIA. SLOW TO RESPOND AND FIND HER WORDS. AT BEDSIDE THIS MORNING. UNDERSTANDS WHO HE IS AN IS ABLE TO PARTICIPATE IN MINIMAL CONVERSATION WITH HIM. STATES SHE IS MUCH MORE ALERT AND AWAKE THAN YESTERDAY. RIGHT CHEST TUBE IN PLACE TO -20 SUCTION. IV CARDIZEM AND HEPARIN GTTS INFUSING. RE-DRAW FOR APPT AT NOON. PLAN FOR SPEECH EVAL TO CHANGE NPO STATUS. PATIENT TO HAVE MRI DONE TOMORROW MORNING. CONSULT FOR NEUROLOGY PLACED. PATIENT TO TRANSFER OUT OF ICU.
--- NOTE | 2020-12-10 12:04 | HC ---
[facility] [place] [address] CONSULTATION Name: HEDY SIMON Room #: Count includes the [facility]- ADM IN M.R.#: [id number] Admission: 12/08/20 Attend Phys: Jonah Gardner MD Discharge: Date of : 46 Report #: [id number] THIS REPORT FOR: cc: Gina Melton MD, Julie MD Barry,Paul Rodgers MD ~ DOC #: [id number] Paul Meadows MD DATE OF SERVICE: 12/09/2020 INFECTIOUS DISEASE CONSULTATION ATTENDING PHYSICIAN: Dr. Gardner. REASON FOR EVALUATION: Sepsis likely genitourinary tract infection, also possible pneumonitis. The patient with diabetes mellitus and DKA. The patient was examined. HISTORY OF PRESENT ILLNESS: This is a 70-year-old woman with known diabetes mellitus, apparently was feeling reasonably well; however, she was found unresponsive on the floor with severe mental status changes. Noted apparently had diarrhea leading up to this. She is unable to give any sorts of details of the history on presentation where she was found to have markedly elevated blood sugars at 845, lactic acidemia 8.0 and a BNP of 65,000. Also, creatinine of 2.1. Urinalysis did show 6-15 white cells. Due to the critical nature of her illness, she is placed in the intensive care unit. She is not particularly responsive. She is markedly encephalopathic at this point and does verbalize which is essentially nonsensical and undergone resuscitative measures, empirically started on combination therapy with Zosyn and vancomycin. Cultures have been collected. They are sterile thus far including the blood in the urine, maintained on supplemental oxygen 3 liters per nasal cannula. She has had a confirmation of a right-sided pneumothorax, did undergo chest tube placement as well. ALLERGIES: CLARITHROMYCIN. CURRENT MEDICATIONS: Include insulin glargine, atorvastatin, vancomycin, famotidine, lorazepam ____, Zosyn and p.r.n. ondansetron. PAST MEDICAL HISTORY: Includes diabetes mellitus, history of asthma, obstructive sleep apnea, hyperlipidemia and hypertension. SOCIAL HISTORY: She is . Former smoker. Occasional ethanol. No illicit drug use. FAMILY HISTORY: Noncontributory. [facility] [address] [place] [address] CONSULTATION Name: HEDY SIMON Room #: 244-P [facility] IN [facility].#: [id number] Admission: 12/08/20 Attend Phys: Jonah Gardner MD Discharge: Date of : 46 Report #: [id number] REVIEW OF SYSTEMS: Unobtainable. PHYSICAL EXAMINATION: GENERAL: Moderate distress at this point. She is quite encephalopathic. She does speak some words, although they are not understandable. VITAL SIGNS: Temperature 102.2 axillary, tachycardic and irregular, blood pressure 126/60, saturations 97%. SKIN: Warm. There are no evident of rashes. HEENT: Normocephalic. Extraocular muscles intact. Nasal cannula in place. NECK: Somewhat resistant to manipulation involving the cervical spine. LUNGS: Few scattered coarse breath sounds. HEART: Borderline tachycardic, irregular. ABDOMEN: Mildly distended, somewhat firm. I do not appreciate any peritoneal signs. GENITOURINARY AND RECTAL: Deferred. LABORATORY DATA: CT of the chest shows a large right-sided pneumothorax, no emphysematous blebs or masses, culture sterile thus far. Procalcitonin 0.62. Most recent blood sugar is 366. It has been consistently several 100s. Lactic acid 6.1. Electrolytes: Sodium 147, potassium 3.3, chloride 110, bicarbonate 22, anion gap of 15, BUN and creatinine 34 and 2.1, glucose box car loader lab was 520, albumin of 2.8, total protein initially 7.4. LFTs unremarkable. Coronavirus testing was negative. CT head was unremarkable. CBC: White count 16.4, H and H is 15.7 and 48.3, platelets of 234. Rapid drug screen was negative. Urinalysis; 6-15 white cells. Initial ABG: pH 7.291, pCO2 of 26.4, pO2 of 69.0. Serum acetone greater than 2. ASSESSMENT: Febrile illness with severe encephalopathy. The patient with diabetes mellitus, has been complicated by hyperosmolar hyperglycemia, suspect the latter was due to a secondary issue. PLAN: We will continue broad spectrum antimicrobial therapy. We will discuss with nurse and see if she is stable enough to undergo lumbar puncture to exclude possibility of meningoencephalitis. We have no particular risk factor at this point. Certainly, she appears to have a urinary tract infection, perhaps ____. She remains critically ill. We will continue to monitor expectantly. MD SHANE Trujillo/KATHARINA/COREEN [address] [address] CONSULTATION Name: HEDY SIMON Room #: 244-P [facility] IN M.R.#: [id number] Admission: 12/08/20 Attend Phys: Jonah Gardner MD Discharge: Date of : 46 Report #: [id number] <ELECTRONICALLY SIGNED> By: Paul Meadows MD 12/10/20 1204 [id number] Paul Meadows MD /nt
--- NOTE | 2020-12-10 18:04 | NUR ---
assumed care of pt at 0700. pt aox2 visibly frustrated with her expressive aphasia. difficulty voicing her concerns or questions. at bedside. chest tube in place - min drainage. aPTT 75; dec heparin rate by 2 - now running at 13.97 u/kg/hr or 9.56ml/hr - redraw sched for 1999. sanchez in place. sinus on telemetry. cardizem gtt infusing at 5cc/hr.
[2020-12-11] VITALS (7 sets, daily range): BP systolic 115–150; BP diastolic 51–73
[2020-12-11 05:10] LABS: HEMATOCRIT 35.9 % (37.0-47.0); HEMOGLOBIN 12.2 gm/dL (12.0-15.0); MCHC 33.9 g/dL (28.0-37.0); MCV 91.4 fL (80.0-100.0); RBC 3.93 mil/uL (4.20-5.00); RDW 14.2 % (10.5-14.5); WBC 10.1 thou/uL (4.0-11.0)
[2020-12-11 05:24] LABS: ALBUMIN 2.2 g/dL (3.4-5.0); CALCIUM 7.7 mg/dL (8.5-10.1); CREATININE 1.2 mg/dL (0.6-1.0); PHOSPHORUS 2.3 mg/dL (2.5-4.9); POTASSIUM 3.2 mmol/L (3.5-5.1)
--- NOTE | 2020-12-11 06:40 | NUR ---
Pt. restless and impulsive at HS , sitting up and wanting to get out of bed. Pt. reoriented and redirected. From room 355 , she got moved closer to the nurses station (361) for closer monitoring. Oriented to person only though she remembers some events that happened to her. She has been repositioned for comfort and lorazepam given to calm her down. She slept fair during the night in beween turns.She is more awake this am and talking.BG of 499 at HS reported to HOSE BUILDER. Sliding scale novolog and scheduled lantus given.SR with BBB then a fib with BBB. Heparin gtt. infusing and protocol followed. No bleeding noted. Cardizem gtt. infusing and titrated per protocol. Right chest tube in place to -20 cm suction. Tolerating room air well with no respiratory distress. O2 sat in the mid to upper 90's. She is afebrile. Bed alarm on and SCD's in place. IV team consult for PICC placement (multiple antibiotics , heparin and cardizem gtt.)
--- NOTE | 2020-12-11 11:13 | NUR ---
A #5F TRIPLE LUMEN POWER PICC WAS PLACED PER HOSPITAL POLICY AFTER A BEDSIDE TIMEOUT WAS COMPLETED. THE LINE WAS TRIMMED TO 45CM AND ADVANCED WITH SOME DIFFICULTY AT THE RIGHT SC AREA. AFTER MULTIPLE ATTEMPTS THE LINE DROPPED INTO THE SVC AND WAS CONFIRMED WITH PEAKED P WAVES AT THE CAV. THE LINE IS IN PROPPER POSITION, SECURED AND RELEASED FOR USE.
--- NOTE | 2020-12-11 13:09 | NUR ---
NEGRO reviewed chart and spoke with nursing and attending physician. Pt was transferred to from ICU. Pt has chest tube intact and is on heparin gtt. Pt to have MRI today. NEGRO discussed case with rehabilitation specialist, who states they are able to accept pt when medically stable. Pt must be off the heparin gtt and have chest tube out. NEGRO met with pt at bedside to provide update and discuss going to [facility] for rehab. Pt is agreeable with plan. NEGRO placed call to pt's home and spoke with pt's dtr, Megha. Pt's spouse currently en route to [facility]. Megha is agreeable with plan for pt going to 5. Pt's dtr had questions regarding DME when pt is discharged. There is not a bedroom on the main level of the home. NEGRO explained that team conferences are held on Tuesdays and rehab team will keep in contact with family regarding DME and discharge needs. Megha verbalized understanding. Contact info for pt's spouse updated. Pt has not used HH in the past. Pt's PCP has been Dr. Gina Melton at [facility]. Dr. Melton recently moved. Pt's family unsure of new PCP. NEGRO contacted PCP office. Pt's PCP is Dr. Missy Demarco. NEGRO is following to assist as needed with discharge planning.
--- NOTE | 2020-12-11 15:22 | NUR ---
BPCI Letter and Preferred provider network provided to patient, lives in home setting
--- NOTE | 2020-12-11 15:49 | NUR ---
PATIENT IS A CANDIDATE FOR [facility] AND HAS BEEN ACCEPTED PENDING BED AVAILABILITY. WEEKEND LIAISON OUTSIDE REPAIRER SPECIAL IS JULIA Austin AND CAN BE REACHED AT [phone].
--- NOTE | 2020-12-11 19:36 | NUR ---
ASSUMED PATIENT CARE AT 0700. A/O X4. APHASHA. TOLERATED DEIT. ASSISTED TO CHAIR. 10ML OUTPUT FROM CHEST TUBE. VSS. PROGRESSING TOWARDS POC GOALS.
[2020-12-12] VITALS (7 sets, daily range): BP systolic 129–153; BP diastolic 69–96
--- NOTE | 2020-12-12 08:04 | NUR ---
PT IS A/0 X2. SOME CONFUSION WITH DISCUSSIONS AND LOST THOUGHT PROCESS. APTT AT 0300 CAME BACK AT 53.3 AND IS THERAPEUTIC. FOLLOWING POC WITH IVF AND IVPB. PT KEEPS STATING SHE WANTS TO GET OUT OF BED AND INTO THE CHAIR AND ATTEMPTS TO GET OUT OF THE BED. BED ALARM SET AND REDIRECTION.
--- NOTE | 2020-12-12 17:55 | NUR ---
assumed care of pt at 0700. pt aox2 forgetful. impulsive at times, wanting to go to bathroom. forgetful about limitations. chest tube in place. heparin gtt in therapeutic range. complains of back pain - alleviated with med regimen and heating pad. eating approx half of meals. all fall precautions in place. afib on telemetry. tachy at times. family present at bedisde - all questions and concerns addressed. wcm.
--- NOTE | 2020-12-12 23:33 | NUR ---
PT VERY RESTLESS IN BED, FREQUENTLY ATTEMPTING TO GET OOB TO USE RESTROOM AND PT REMINDED SHE HAS A BURGESS DD. FLAT AFFECT, GOOD EYE CONTACT. PT PULLED OFF TELE MONITOR AND GOWN SEVERAL TIMES. IVF INTACT, HEPARIN INTACT. CHEST TUBE INTACT. PRN FOR ANXIETY PROVIDED X 1. BED ALARM ON.
--- NOTE | 2020-12-13 00:32 | NUR ---
PT CONTINUES TO IMPULSIVELY PULL OFF GOWN, THROW LEGS OVER RAIL, PULL ON TELE BOX. PULL ON IV. PT REDIRECTED TO RETURN TO RESTING. BED ALARM ON.
--- NOTE | 2020-12-13 02:33 | NUR ---
PT CONTINUED TO PULL OFF GOWN TELE, DRESSING ON CHEST TUBE AND WAS PULLING AT STAT LOCK. PROVIDER CONTACTED AND ORDER FOR MITTENS RECEIVED. POTTERY KILN BUILDER AND PTS ARMAND NOTIFIED.
[2020-12-13 03:15] VITALS: BP 164/83
[2020-12-13 07:46] VITALS: BP 151/100
--- NOTE | 2020-12-13 11:18 | NUR ---
VAT CONSULTED TO REPLACE PICC. PT'S ORDER AND CONSENT VERIFIED. ATTEMPTED CHRISTY SL PICC UNSUCCESSFUL UNABL TO PASS CATH PAST SHOULDER, WOULD NOT DROP WITH REPOSITIONING PT SEVERAL ATTEMPTS. ROB BASILIC WAS WIDELY PATENT WITH USG. VESSEL MEASURED 41% SL POWER PICC TRIMMED TO 42CM INSERTED TO 0CM WITH PEAKED PWAVES FOR CONFIRMATION ON 3CG. PT TOLERATED WELL. RELEASED FOR IMMEDIATE USE PER PROTOCOL TO ASHELY GALAN
[2020-12-13 11:38] VITALS: BP 147/91
--- NOTE | 2020-12-13 15:05 | NUR ---
assumed care of pt at 0700. pt continues to be restless and impulsive. pulled out picc line overnight. oriented to situation. aware she is comprimising her safety and risk of pulling out chest tube, but continues to make attempts out of bed. mittens in place, but removes frequently. psych consulted. physician not wanting restraints. new picc line inserted by iv team. heparin gtt restarted. small output noted in chest tube. smears of bowel movement throughout the day. chest tube changed to water seal. afib on telemetry. slow progress towards poc goals.
[2020-12-13 15:40] VITALS: BP 139/81
[2020-12-13 19:31] VITALS: BP 155/78
[2020-12-14] VITALS (7 sets, daily range): BP systolic 116–155; BP diastolic 63–109
[2020-12-14 02:42] LABS: HEMATOCRIT 35.2 % (37.0-47.0); HEMOGLOBIN 11.8 gm/dL (12.0-15.0); MCH 30.6 pg (26.0-34.0); MCHC 33.6 g/dL (28.0-37.0); MCV 91.1 fL (80.0-100.0); RBC 3.86 mil/uL (4.20-5.00); RDW 13.3 % (10.5-14.5); WBC 14.4 thou/uL (4.0-11.0)
[2020-12-14 02:55] LABS: ALBUMIN 2.1 g/dL (3.4-5.0); CREATININE 1.2 mg/dL (0.6-1.0); PHOSPHORUS 4.7 mg/dL (2.6-4.7)
--- NOTE | 2020-12-14 05:55 | NUR ---
PT IS A/0 X2, WITH CONFUSION AND IMPULSIVENESS. RESTRAINT ORDER DC'D AT 0200. HEPARIN DRIP CURRENTLY AT 15.66 U/KG. NEXT REDRAW FOR APTT IS 0830. PT WAS INCONTINENT TO BOWEL X2 OVERNIGHT.
[2020-12-14] MEDS ORDERED: CEFDINIR300 MG PO (10:15)
[2020-12-14] MEDS ORDERED: CARVEDILOL25 MG PO (10:15)
[2020-12-14] MEDS ORDERED: CARDIZEM CD 18180 M3 PO (10:15)
[2020-12-14] MEDS ORDERED: ELIQUIS5 MG PO (10:15)
--- NOTE | 2020-12-14 13:51 | NUR ---
ON-GOING ASSESSMENT: ZUHAIR REVIEWED CHART AND SPOKE WITH ATTENDING. PT IS MEDICALLY STABLE TO DISCHARGE TO [facility] TODAY. ZUHAIR SPOKE WITH [facility] WHO STATES THEY CAN ACCEPT HER TODAY BUT NEEDING ANOTHER NEGATIVE COVID TEST PRIOR TO COMING TO [facility], [facility] WAS NOTIFYING BEDSIDE RN. CM MET WITH PATIENT AND SHE IS AGREEABLE WITH PLAN TO [facility]. CM LEFT VM FOR PATIENTS . PT REPORTS NO FURTHER NEEDS FROM CM.
--- NOTE | 2020-12-14 14:28 | NUR ---
ASSUMED PATIENT CARE AT 0700. A/O X4. DROWSEY. RESTLESS. APHASHA. RIGHT CHEST TUBE DC'D BY DR CORTES. NO SOB NOTED. C/O BACK PAIN. ASSISTED TO CHAIR. SLOWLY TOWARDS POC GOALS.
== END 2020-12-14 16:52 | DRG 871 ==
LOC: ER 17:50 → EROBS 20:29 → ICU 20:29 → 3W 12-10 13:08
PROVIDERS: Emergency Medicine; Hospitalist; Nurse Practitioner Family; ADMIT Hospitalist; ATTEND Hospitalist
DX: A41.89 Other specified sepsis (principal); E11.10 Type 2 diabetes mellitus with ketoacidosis without coma; J18.9 Pneumonia, unspecified organism; J96.01 Acute respiratory failure with hypoxia; N17.0 Acute kidney failure with tubular necrosis; G92 Toxic encephalopathy; S22.31XA Fracture of one rib, right side, initial encounter for closed fracture; N39.0 Urinary tract infection, site not specified; J93.9 Pneumothorax, unspecified; I48.20 Chronic atrial fibrillation, unspecified; E87.0 Hyperosmolality and hypernatremia; E46 Unspecified protein-calorie malnutrition; E78.5 Hyperlipidemia, unspecified; G47.33 Obstructive sleep apnea (adult) (pediatric); E86.0 Dehydration; I10 Essential (primary) hypertension; K21.9 Gastro-esophageal reflux disease without esophagitis; J45.909 Unspecified asthma, uncomplicated; X58.XXXA Exposure to other specified factors, initial encounter; G47.00 Insomnia, unspecified; Z20.822 Contact with and (suspected) exposure to COVID-19; Z79.4 Long term (current) use of insulin; Z98.49 Cataract extraction status, unspecified eye; Z79.899 Other long term (current) drug therapy; Z79.82 Long term (current) use of aspirin; Z88.1 Allergy status to other antibiotic agents; Z87.891 Personal history of nicotine dependence; Y93.89 Activity, other specified; Y92.89 Other specified places as the place of occurrence of the external cause; Y99.8 Other external cause status; Z68.29 Body mass index [BMI] 29.0-29.9, adult
CPT/HCPCS: 10078; 10879; 27000; 50455

== ENCOUNTER 2020-12-14 13:07 | Inpatient (IN) | payer OTHER ==
[~2020-12-14] VITALS: Ht 170.2 cm; Wt 76.7 kg
[~2020-12-14 13:07] MED LIST changes: +BASAGLAR K100 UNIT/1 SQ; +BENTYL 10 MG CA10 M1; +CARDIZEM CD 18180 M3 PO; +CARVEDILOL25 MG PO; +CEFDINIR300 MG PO; +DONEPEZIL HCL 55 M1; +ELIQUIS5 MG PO; +JANUMET XR 1001 EACH; +ROSUVASTATIN CA20 MG
[2020-12-14 20:00] VITALS: BP 113/62
--- NOTE | 2020-12-14 20:48 | NUR ---
PATIENT ARRIVE ON UNIT IN A W/C AROUND 1700. ALERT AND ORIENTED TO SELF, SITUATION AND PLACE. REPORTED 8/10 AROUND RIBS IN RIGHT UPPER QUADRANT. A DRESSING IS COVERING THIS AREA POST REMOVAL OF CHEST TUBE IN AM OF 12/14/20. DRESSING IS CDI. PRN TRAMADOL ADMNISISTERED TO MANAGE PAIN. PATIENT ABLE TO TAKE MEDICATION WHOLE W/ THIN LIQUIDS, NO SIGNS OF ASPIRATION NOTED. SINGLE LUMEN PICC LINE PRESENT IN LEFT UPPER ARM. PATIENT HAD BM ON AM OF 12/14. PATIENT'S PRESENT DURING ADMISSION PROCESS TO HELP ANSWERE QUESTIONS AND SING CONSENT FORMS. FALL PRECAUTION EDUCATION PROVIDED TO PATIENT, CALL LIGHT WITHIN REACH AND BED ALARM ON. NO CONCERN AT THIS TIME WILL CONTINUE TO MONITOR.
--- NOTE | 2020-12-15 05:14 | NUR ---
ASSESSMENT: PT REMAIN ALERT AND ORIENT TIMES THREE. UP WITH GB AND WALKER, GAIT UNSTEADY. SLEPT MOST OF THE NIGHT. REQUESTED TO SIT IN CHAIR AROUND 0500 R/T CHRONIC BACK PAIN. DENIES SOB, SYNCOPE AND N/V. PLEASANT AND COOPERTIVE TOWARDS STAFF. VSS, AFEBRILE. SLOW PROGRESS TOWARDS DC GOALS, WILL CONTINUE TO MONITOR.
[2020-12-15 07:15] VITALS: BP 103/62
--- NOTE | 2020-12-15 09:20 | NUR ---
PT SITTING UP IN CHAIR WITH LAP FABBY FACING FORWARD. PT ABLE TO TAKE OFF LAP FABBY WITHOUT ANY PROBLEMS. PT HAS PICC LINE TO LEFT ARM THAT IS SL. PT STATED SHE HAS SOME PAIN TO RT LOWER BACK. PT USES WALKER WHEN AMBULATION. PT VERY IMPULSIVE THIS AM GETTING UP WITHOUT ASSISTANCE AND WALKING AROUND HER BED AND TRYING TO MAKE IT. PT SPEECH IS SLOW WHEN COMMUNICATING.
--- NOTE | 2020-12-15 13:37 | NUR ---
team meeting, mod assit with transfers. poor insight. re team.
[2020-12-15 19:43] VITALS: BP 93/55
--- NOTE | 2020-12-15 20:23 | NUR ---
DISCONTINUED PICC LINE TO LEFT ARM. COVERED WITH 4X4 AND CENTRAL LINE TEGADERM. PT TOLERATED WELL.
[2020-12-15 21:10] LABS: FOLIC ACID 19.7 ng/mL (8.6-58.9)
--- NOTE | 2020-12-16 00:13 | NUR ---
PT ALERT AND ORIENTED X 2, FORGETFUL. IMPULSIVE AT TIMES. FOUND WANDERING AROUND ROOM AT START OF SHIFT. REMINDED PT TO CALL FOR ASSISTANCE WHEN GETTING UP. BLOOD SUGAR 96 AT HS. CALLED GAIL DOBBS AND SHE ORDERED FOR 20 UNITS LANTUS INSTEAD OF 30. PT C/O PAIN IN HER BACK. TRAMADOL GIVEN AT HS AND PT SLEEPING UPON REASSESSMENT. CPAP ON DURING THE NIGHT. BED ALARM ON FOR SAFETY. PT APPEARS TO BE SLEEPING ON HOURLY ROUNDS.
[2020-12-16 07:30] VITALS: BP 145/76
--- NOTE | 2020-12-16 08:30 | NUR ---
PT SITTING UP IN CHAIR THIS AM. PT ORIENTED X2 PERSON AND . PT IS FORGETFUL. PT COULDN'T REMEMBER WHAT HAPPENED BEFORE FALL AT HOME AND WHY SHE WAS IN HER HUSBANDS ROOM. PT LUNGS CLEAR AND NO SOB. PT UP WITH ASSIST X1. GAIT IS NOT STEADY ENOUGH TO ALLOW HER UP BY HERSELF. PT CAN USE WALKER, THERAPY WORKING WITH PT WITHOUT WALKER. PT HAS GAIT BELT ON FOR SAFETY. PT HAS BRUISE TO RT FLANK SIDE. PT TOLERATING DIET AND THIN WATER. DENIES ANY PAIN AT THIS TIME.
--- NOTE | 2020-12-16 13:35 | NUR ---
diana returned phone call to spouse claudio. he expressed that his daughter that lives her and daughter coming in from on monday to help take care of some issues in the home, mauricio bedroom so she will be able to get around better. this will have to be done before she can come home and it will at least take a week or so. i was told she be in rehab for 2-3 weeks. issue stuff piled up, akhil stuff and they have to be able to sort through it before she can come home. let dr know please"/claudio. diana passed on to [facility] team. will cont followings needed for dc needs.
--- NOTE | 2020-12-16 13:52 | NUR ---
LATE ENTRY QI CALRIFICATION: PER ENTRY LEVEL FINANCIAL ANALYST EVALUATION, PT REQUIRES SUPERVISION TO MONITOR RATE OF ORAL INTAKE AND CUES FOR SAFE SWALLOW MODALITIES. EATING QI IS 4.
--- NOTE | 2020-12-16 16:18 | NUR ---
PT RESTING IN BED AND BLOOD SUGAR WAS TAKEN AND WAS 47. PT RECIEVED ORANGE JUICE X2. PT RECHECKED 15 MIN LATER AND SUGAR WAS 48. GAVE PT GRAHMN CRACKES AND PEANUT BUTTER.
--- NOTE | 2020-12-16 16:52 | NUR ---
PT HAS TRAY NOW AND EATING. PT STATED SHE JUST FELT NAUSEATED, NO LETHARGY.
--- NOTE | 2020-12-16 17:35 | NUR ---
PT ATE 50% OF DINNER AND STATED SHE ISN'T HUNGRY. BLOOD SUGAR NOW IS 67.
[2020-12-16 19:19] VITALS: BP 112/56
[2020-12-17 02:06] LABS: GLYCOHEMOGLOBIN (HGB A1C) 9.7 % (4.8-5.6)
--- NOTE | 2020-12-17 02:10 | NUR ---
PT CARE ASSUMED WITH PT IN BED WITH FAMILY AT BEDSIDE.PT IS A/O X4.PT IS UP WITH X1 ASSIT WITH WALKER AND GAIT BELT TO BATHROOM.PT IS ON ROOM AIR AND USES A CPAP AT NIGHT.PT SKIN IN INTACT WITH BRUISING ON RT UPPER BACK AND ARMS.PT IMPULSIVE AND BED ALARM AND FAKK PRECAUTIONS IN PLACE.PT HAD TRAMADOL FOR PAIN MANAGEMENT FOR BACK PAIN .WILL CONTINUE TO MONITOR
[2020-12-17 07:30] VITALS: BP 136/66
[2020-12-17 19:06] VITALS: BP 134/75
--- NOTE | 2020-12-17 20:11 | NUR ---
ASSUMED CARE AT 0700. A&OX4, WITH NOTED FORGETFULNESS. C/O PAIN IN RIGHT UPPER FLANK AREA. PAIN MANAGED WITH PRN TRAMADOL, SCHEDULED TYLENOL & LIDOCAINE PATCH. PT REPORTS THAT HAVING THE AQUA-K PAD ON THE BED WHILE SHE SLEEPS ON HER RIGHT SIDE IS REALLY HELPING MANAGE THE PAIN WELL. MEDICATIONS WERE ADMNISTERED ORDERED. INSULIN WAS HELD FOR LUNCH ANG DINNER. PATIENT REFUSED TO HAVE LUNCH, AND BG LEVEL FOR DINNER WERE <70. PATIENT HAD DINNER, AND EXTRA DESERT WELL SOME ORANG JUICE, PATIENT BG GRADUALLY INCREASE, AND WAS 80 AT THE END OF SHIFT. PATIENT ONLY REPORTED BLURRED VISION HYPOGLECEMIA S/S. SHE REPORTED VISION GETTING BETTER BY END OF SHIFT. WILL CONTINUE TO MONITOR.
--- NOTE | 2020-12-17 20:21 | NUR ---
ASSUMED CARE OF PT AT 1900. PT IS A&OX3. IS ON ROOM AIR. REPORTS PAIN 4/10 IN RIGHT BACK THAT IS BEING MANAGED WITH ORAL MEDS & OTHER THERAPUETIC TECHNIQUES. PT HAS HEATING PAD IN ROOM. SKIN IS APPROPRIATELY COLORED. BRUISING NOTED. PT IS STABLE. PT IS UP WITH STANDBY ASSIST, GAIT BELT, WALKER. FALL PRECAUTIONS & HOURLY ROUNDING CONTINUED THIS SHIFT. PT IS IMPULSIVE & HAS BEEN EDUCATED REGARDING PT SAFETY & PT RESPONSIBILITES. PT IS CURRENTLY IN ROOM IN BED, WATCHING TV & ON LAP TOP. CALL LIGHT WITHIN REACH. WILL CONTINUE TO MONITOR.
[2020-12-18 08:20] VITALS: BP 142/72
--- NOTE | 2020-12-18 15:11 | NUR ---
ASSUMED CARE OF PATIENT AT SHIFT CHANGE; 0700. ASSESSMENT CHARTED. MEDICATIONS ADMINISTERED PER EMAR. PATIENT IS A&OX3-4; WITH NO SIGNS OF CONFUSION THIS SHIFT. PATIENT VOICED PAIN "LIKE NO OTHER" THIS SHIFT; RELIEF NOTED WITH SCHEDULED AND PRN ANALGESICS. PROVIDED NOTED NEED FOR MED CHANGE; NEW ORDERS IN (SEE EMAR). PATIENT USING CALL LIGHT THIS SHIFT BUT IMMEDIATELY GETTING UP. BED ALARM REMAINS ON AT ALL TIMES AND FALL PRECAUTIONS IN PLACE. PATIENT CONTINUE TO GET UP SBA W WALKER AND NO ISSUES. FSBS HAVE BEEN STABLE THIS SHIFT HOWEVER PATIENT DID VOICE ANXIETY IN TAKING INSULIN THIS DAY AND REFUSED IN AM AND LUNCH. LIDOCAINE PATCH APPLIED TO R SIDE OF BACK AFTER SHOWER. HEATING PAD IN PLACE. PAIN BEING MONITORED AND TREATED PER EMAR NEEDED. WILL CONTINUE TO MONITOR AND FOLLOW PLAN OF CARE
[2020-12-18 19:20] VITALS: BP 138/65
--- NOTE | 2020-12-18 23:40 | NUR ---
checked pts blood sugar approx 2026 and it was 46. pt asymptomatic except for some forgetfulness. pt given orange juice and crackers with peanut butter. rechecked blood sugar approx 2055 and result was 78. pt stated she felt fine. checked computer for previous blood sugar result and could not find results for any blood sugars done today 12/18.last result before tonight was 12/17 approx 2126 with result of 128. expansion joint finisher physician notified and warehouse attendant also notified. per physician order hold all insulin for tonight and re-evaluate in am. check blood sugar tonight approx 0001. blood sugar now 83. pt up to bathroom and now back to bed. will continue to monitor.
--- NOTE | 2020-12-19 03:12 | NUR ---
pt c/o shortness of breath and difficulty sleeping. pt up to chair, up to bathroom several times tonight. pt somewhat restless and anxious at times. blood sugar checked -result 131. 02 sat checked 100% on room air. pts cpap machine not working properly, paged Resp therapy and they are in her room now assisting pt with resp treatment and use of cpap possibly going to use hospital cpap. pt given po Tramadol early for c/o pain to right flank. will continue to monitor.
--- NOTE | 2020-12-19 06:56 | NUR ---
resp assisted pt with hospital cpap and pt stated she felt better after pain pill and new machine. pt now sleeping soundly. bed alarm on and call light in reach. report given to day nurse.
[2020-12-19 08:00] VITALS: BP 165/71
--- NOTE | 2020-12-19 10:54 | NUR ---
ASSUMED CARE OF PT AT 0700 THIS MORNING. CONTINUED CARE IN PLACE WITH SCHEDULED MEDS AND TX'S. ASSESSMENTS OTHERWISE UNREMARKABLE. PT HAS BEEN USING CPAP AND WHILE SLEEPING. MEDS AND TX PASSED SCHEDULED.
[2020-12-19 19:14] VITALS: BP 147/79
--- NOTE | 2020-12-20 01:32 | NUR ---
assumed care approx 1900 evening 12/19. pt lying in bed with cpap on at change of shift. pt awoke to go to bathroom and take hs meds. pt appropriate and cooperative. pt denies c/o pain so far on this shift. pt appears to be sleeping soundly. bed alarm on and call light in reach. will continue to monitor.
[2020-12-20 08:00] VITALS: BP 156/74
--- NOTE | 2020-12-20 15:14 | NUR ---
ASSUMED CARE OF PATIENT AT SHIFT CHANGE. ASSESSMENT CHARTED. MEDICATIONS ADMINISTERED PER EMAR. VSS. PATIENT IS A&OX4 AND MAKES NEEDS KNOW ALTHOUGH NON-COMPLIANT AT TIMES; BED ALARM AND CHAIR ALARM ON AT ALL TIMES. PATIENT TRANSFERS AND AMBULATES VIA SBA WITH NO ISSUES. VOICES INTERMITTENT PAIN PARTIALLY RELIEVED BY HEATING PAD & PAIN ANALGESICS. PATIENT AMBULATED AROUND UNIT WITH WALKER X2 AND TOLERATED WELL. HOSPITALIST CONTACTED ABOUT STARTING SLIDING SCALE INSULIN ORDER; NEW ORDER ACK. AND IMPLEMENTED. FAMILY AT BEDSIDE. PATIENT VOICING NO FURTHER NEEDS OR CONCERNS. WILL CONTINUE TO MONITOR AND FOLLOW POC.
[2020-12-20 19:34] VITALS: BP 162/89
--- NOTE | 2020-12-21 00:53 | NUR ---
PT AOX4, ANSWERING ORIENTATION PROMPTS APPROPRIATELY. PT WITH INTERMITTENT FORGETFULNESS. PT REPORTS 2-4/10 RIGHT SIDED FLANK PAIN RADIATING TO RIGHT SIDE OF CHEST, PT REPORTS CHRONIC PAIN IN CHEST DUE TO HISTORY OF RIB FRACTURE. PT RECEIVING SCHEDULED PO APAP TID AND SCHEDULED PO TRAMADOL Q6HR. PT DENIES SOB WHILE ON ROOM AIR. PT TOLERATING PO INTAKE OF FLUIDS AND HEART HEALTHY DIET WITHOUT ISSUE. PT WITHOUT NAUSEA OR EMESIS. PT AMBULATING WITH STANDBY ASSIST AND WALKER IN ROOM AND TO BATHROOM. GAIT STEADY, NO CONCERNS OBSERVED. PT REPORTS CHRONIC TINGLING IN BILATERAL TOES. CAPILLARY REFILL LESS THAN 3SEC IN ALL EXTREMITIES. PT ENCOURAGED TO NOTIFY STAFF FOR ALL NEEDS, CALL LIGHT WITHIN REACH, BED ALARM ON, BED LOCKED IN LOWEST POSITION, FREQUENT MONITORING WILL CONTINUE.
[2020-12-21 05:24] LABS: HEMATOCRIT 31.6 % (37.0-47.0); HEMOGLOBIN 10.6 gm/dL (12.0-15.0); MCH 31.5 pg (26.0-34.0); MCHC 33.6 g/dL (28.0-37.0); MCV 93.8 fL (80.0-100.0); RBC 3.37 mil/uL (4.20-5.00); RDW 14.3 % (10.5-14.5); WBC 7.8 thou/uL (4.0-11.0)
[2020-12-21 05:29] LABS: CALCIUM 8.5 mg/dL (8.5-10.1); CREATININE 1.2 mg/dL (0.6-1.0)
[2020-12-21 07:15] VITALS: BP 175/80
--- NOTE | 2020-12-21 11:59 | NUR ---
ASSUMED PT CARE THIS AM. PT A&OX4. ON ROOM AIR DURING THE DAY. PATIENT REPORTED PAIN IN THE LOWER BACK OF A 3 THAT RESOLVED WITH PAIN MEDICATION GIVEN. BLOOD SUGAR BEING MONITORED. PATIENT TOOK MORNING MEDICATIONS WITHOUT ISSUE. PATIENT UP WITH MINIMAL ASSIST, WALKS WITH HER WALKER. REPORTING NO NUMBNESS OR TINGLING. FALL PRECAUTIONS ARE IN PLACE, CALL LIGHT WITHIN REACH.
[2020-12-21 16:26] VITALS: BP 157/68
[2020-12-21 19:30] VITALS: BP 156/81
--- NOTE | 2020-12-22 01:22 | NUR ---
PT ASSESSMENT COMPLETED AND VSS. MEDS GIVEN ORDERED AND WELL TOLERATED. PT MOD I IN ROOM AND STEADY. PT STATES THAT SHE IS FEELING MUCH BETTER THEN WHEN SHE WAS ADMITTED. PT HAD CPAP AND CONT 02 SAT MONITOR ON AT HS. PT SLEEPING WELL AT THIS TIME. WILL CONTINUE TO MONITOR FREQUENTLY.
--- NOTE | 2020-12-22 08:08 | NUR ---
PT WORKING WITH OT THIS AM. PT FINISHED SITTING IN CHAIR. PT WALKING WITH THERAPY WITHOUT A WALKER WITH STEADY GAIT. PT STATED SHE DOES GET SOME SOB WITH EXERCISE. PT BRUISE TO RT SIDE OF BACK IS HEALING. PT STATED SHE DOES FEEL LIKE A NEEDLE SHARP FEELING TO MIDDLE OF BACK. PT STATED SHE DOES HAVE A GENERALIZED ACHEY FEELING ALL OVER OF 3 ON 1-10 SCALE.
[2020-12-22 09:00] VITALS: BP 171/79
--- NOTE | 2020-12-22 12:37 | NUR ---
CROP SETTING OUT MACHINE OPERATOR EDUCATED PATIENT'S RE: NEED FOR ASSITANCE/SUPERVISION WITH MANAGING MEDICATION AND FINANCES UPON DISCHARGE WELL INSIGHT DEFICITS. SPOUSE STATED HE WILL ATTEMPT TO HELP THE PATIENT, HOWEVER, SHE TYPICALLY DENIES THE NEED FOR ASSISTANCE AND DOES NOT LET HIM HELP.
--- NOTE | 2020-12-22 12:45 | NUR ---
team meeting, mod I in the room, standby rt cog. dc thur the , outpt neuro pysch, outpt pt, speech at [facility]. follow up with pcp after dc.
--- NOTE | 2020-12-22 17:58 | NUR ---
PT HAD A GOOD DAY AND AMBULATING IN ROOM WITHOUT ANY ISSUES WITH BALANCE. PT STATED SHE WASN'T VERY HUNGRY EARLIER WHEN SHE ATE AT 1420. PT STATED SHE HAS NO FEELINGS OF HUNGER. PT DIDN'T NEED TO RECIEVE INSULIN FOR SUPPER.
[2020-12-22 18:55] VITALS: BP 144/71
--- NOTE | 2020-12-23 00:53 | NUR ---
PT ASSESSMENT COMPLETED AND VSS. MEDS GIVEN ORDERED AND WELL TOLERATED. MOD I IN ROOM. STEADY WHEN UP. PT DENIES NEEDS. PT EXCITED ABOUT GOING HOME SOON. SLEEPING WELL. CPAP ON AT HS. WILL CONTINUE TO MONITOR FREQUENTLY.
[2020-12-23 08:00] VITALS: BP 161/81
[2020-12-23] MEDS ORDERED: BENTYL 10 MG CA10 M1 PO (12:14)
[2020-12-23] MEDS ORDERED: CARDIZEM CD 18180 M3 PO (12:17)
[2020-12-23] MEDS ORDERED: KONSYL6 GM PO (12:17)
[2020-12-23] MEDS ORDERED: LIPITOR40 MG PO (12:17)
[2020-12-23] MEDS ORDERED: LEVEMIR FL100 UNIT/2 SUBQ (12:21)
[2020-12-23] MEDS ORDERED: NOVOLOG FL100 UNIT/M SUBQ (12:21)
[2020-12-23] MEDS ORDERED: CARVEDILOL25 MG PO (12:21)
[2020-12-23] MEDS ORDERED: VITAMIN D250 MC1 PO (12:23)
[2020-12-23] MEDS ORDERED: METAMUCIL660 GM PO (12:23)
--- NOTE | 2020-12-23 15:36 | PLAN ---
[facility] [place] [address] REHAB UNIT PLAN OF CARE Name: HEDY SIMON Room #: 504-1 ADM IN M.R.#: [id number] Admission: 12/14/20 Attend Phys: Dion Ortiz MD Discharge: Date of : 46 Report #: [id number] THIS REPORT FOR: cc: Gina Melton MD,Gina Ortiz,Dion Crandall MD ~ DOC #: [id number] Dion Ortiz MD DATE OF SERVICE: 12/16/2020 SUBJECTIVE: The patient was seen back in followup. She was in no distress. Temperature 97.7, pulse 63, respirations 18, blood pressure is 93/55. No focal calf swelling. She is working in therapies with transfers at a mod assist level. Gait is 150 feet front-wheeled walker with assistance. She needs cues for safe hand placement, tends to be distractible, noted to veer some to the right. In occupational therapy, min assist, lower body dressing, supervision upper body dressing. In speech, she has mild to moderate comprehensive deficits. On a mechanical soft diet with all liquids. Cognition is moderate. ASSESSMENT: 1. Acute metabolic encephalopathy. MRI of the brain did not show any stroke. 2. Hyperglycemic hyperosmolar state with type 2 diabetes mellitus. 3. Right pneumothorax, status post chest tube. 4. Right posterior 7th and 8th rib fractures. 5. Pneumonia. 6. Hypernatremia. 7. Acute renal insufficiency, superimposed on chronic kidney disease. 8. Atrial fibrillation. 9. Obstructive sleep apnea. 10. Protein calorie malnutrition. PLAN: The overall plan of care is based on the pre-admission screen and information garnered from therapy assessments. 1. Estimated length of stay is probably around 14 days. 2. Medical prognosis is reasonably good. 3. Anticipated interventions includes the interdisciplinary acute inpatient rehabilitation program. 4. Anticipated functional outcomes would be for the patient to become modified independent with transfers, mobility and ADLs and to improve as far as cognition, so that she can return back to the home setting. 5. Discharge destination would be back to the home setting with her . 6. Expected therapy by discipline includes PT, OT and speech 1 hour per day each 5 days a week throughout the duration of the acute inpatient rehabilitation stay. ADDENDUM: The patient's prognosis for significant practical improvement within [address] [address] REHAB UNIT PLAN OF CARE Name: HEDY SIMON Room #: 504-1 ADM IN [facility]#: [id number] Admission: 12/14/20 Attend Phys: Dion Ortiz MD Discharge: Date of : 46 Report #: [id number] a reasonable period of time appears good. Given the patient's complex medical condition and risk of further medical complication, rehabilitation services could not be safely provided at a lower level of care such as a [place] [facility] facility. MD MARQUIS Bassett/INO <ELECTRONICALLY SIGNED> By: Dion Ortiz MD 12/23/20 1536 [id number] Dion Ortiz MD /nt
--- NOTE | 2020-12-23 15:36 | H ---
[facility] [place] [address] HISTORY AND PHYSICAL Name: HEDY SIMON Room #: 504-1 ADM IN M.R.#: [id number] Admission: 12/14/20 Attend Phys: Dion Ortiz MD Discharge: Date of : 46 Report #: [id number] THIS REPORT FOR: cc: Gina Melton MD, Julie MD Smithson,Dion Crandall MD ~ DOC #: [id number] Dion Ortiz MD DATE OF SERVICE: 12/15/2020 ADDENDUM The patient has been admitted for acute in-hospital inpatient rehabilitation. She initially had a markedly elevated blood glucose of 845, lactic acidosis. She had a right pneumothorax. Chest tube was placed, was treated in the ICU. She had complications with atrial fibrillation with rapid ventricular rate and was noted to have significant encephalopathy. MRI of the head showed no acute stroke. She gradually stabilized and was felt to be ready for transfer for acute inpatient rehabilitation. Her chest tube was removed. Please see the full documentation as noted. PAST MEDICAL HISTORY, ALLERGIES, HABITS, SOCIAL HISTORY: All as documented. MEDICATIONS: See the MAR. REVIEW OF SYSTEMS: A 14-point system is as noted. No chest pain, shortness of breath or abdominal discomfort. PHYSICAL EXAMINATION: GENERAL: A 70-year-old female. She was in no obvious distress. She is alert, definite latency to her response, so she does know the year. She knows the place. She has decreased insight, can tend to be impulsive, no apparent distress. She is on room air. VITAL SIGNS: Temperature 97.8, pulse 65, respirations 18, blood pressure 103/62. HEENT: Appeared to be benign. Head normocephalic. CHEST: Sound clear to auscultation. CARDIOVASCULAR: Regular rate and rhythm. ABDOMEN: Bowel sounds positive, nontender. GENITOURINARY AND RECTAL: Deferred. EXTREMITIES: No distal lower extremity edema. She has functional range of motion of the upper and lower extremities. NEUROLOGIC: Upper body strength is probably a grade 4-/5. Lower body strength is probably a 3+ to 4-/5. She has been mod assist coming to stand and is ambulating a short distance. She does have significant cognitive deficits with decreased memory. [address] [address] HISTORY AND PHYSICAL Name: HEDY SIMON Room #: [facility] ADM IN [facility].#: [id number] Admission: 12/14/20 Attend Phys: Dion Ortiz MD Discharge: Date of : 46 Report #: [id number] ASSESSMENT: A 70-year-old white female with the following problem list: 1. Acute metabolic encephalopathy. 2. Hyperglycemic hyperosmolar state, type 2 diabetes mellitus. 3. Right pneumothorax with prior chest tube. 4. Right posterior 7th and 8th rib fractures. 5. Pneumonia. 6. Hypernatremia. 7. Acute renal insufficiency, superimposed on chronic kidney disease. 8. Atrial fibrillation. 9. Obstructive sleep apnea. 10. Protein calorie malnutrition. PLAN: The patient has been admitted for acute in-hospital inpatient rhabilitation. Please see the full admission note dictation. As far as risk of complications, the patient has multiple medical comorbidities as noted above. Initial plan of care involves the interdisciplinary acute inpatient rehabilitation program. Prognosis is reasonably good with estimated length of stay probably at least 14 days. Potential barriers would include her multiple medical comorbidities and decreased functional status. The patient is admitted for an acute in-hospital inpatient rehabilitation stay to maximize her functional mobility with mobility ADLs as well as improved cognition, so she can return back to the home setting, where she is noted to live with her . MD MARQUIS Bassett/DINA/LORETTA <ELECTRONICALLY SIGNED> By: Dion Ortiz MD 12/23/20 1536 [id number] [id number] Dion Ortiz MD /nt
--- NOTE | 2020-12-23 16:49 | NUR ---
ASSUMED CARE OF PT AT 1300. PT IS A&OX4. IS ON ROOM AIR. IS STABLE. REPORTS PAIN IN RIGHT BACK & RIB AREA THAT IS BEING MANAGED WITH ORAL & TOPICAL PAIN MEDS, HEATING PAD, & OTHER THERAPUETIC TECHNIQUES. PT IS UP ADLIB. HOURLY ROUNDING CONTINUED THIS SHIFT. PT IS ABLE TO TURN SELF IN BED. LABS & VITALS REVIEWED. CALL LIGHT WITHIN REACH. WILL CONTINUE TO MONITOR.
[2020-12-23 19:10] VITALS: BP 158/68
--- NOTE | 2020-12-24 00:32 | NUR ---
CONTINUED CARE OF PT FROM 1300. PT IS A&OX4. IS ON ROOM AIR. USES CPAP AT HS. IS STABLE. IS UP WITH MOD I IN ROOM. REPORTS BACK PAIN IN RIB PAIN THAT IS BEING MANAGED WITH ORAL & TOPICAL PAIN MEDS, HEATING PAD, & OTHER THERAPUETIC TECHNIQUES. IS ABLE TO TURN SELF IN BED. HOURLY ROUNDING CONTINUED THIS SHIFT. LABS & VITALS REVIEWED. PT IS CURRENTLY SLEEPING. CALL LIGHT WITHIN REACH. WILL CONTINUE TO MONITOR.
--- NOTE | 2020-12-24 02:42 | NUR ---
ASSUMED CARE APPROX 0001 12/24. PT IN BED SLEEPING WITH CPAP ON. PT MODIFIED INDEP IN HER ROOM TOLERATING WELL. AGREE WITH REASSESSMENT FROM DAYSHIFT RN. NO ADDITIONS TO NOTE. CALL LIGHT IN REACH. WILL CONTINUE TO MONITOR.
[2020-12-24 08:00] VITALS: BP 162/58
[2020-12-24] MEDS ORDERED: TRAMADOL 50 MG50 MG PO (08:39)
[2020-12-24] MEDS ORDERED: NOVOLOG FL100 UNIT/M SUBQ (10:07)
[2020-12-24 10:37] VITALS: BP 162/58
[2020-12-24 11:11] VITALS: BP 162/58
--- NOTE | 2020-12-24 12:46 | HC ---
[facility] [place] [address] CONSULTATION Name: HEDY SIMON Room #: 504-1 ADM IN M.R.#: [id number] Admission: 12/14/20 Attend Phys: Dion Ortiz MD Discharge: Date of : 46 Report #: [id number] THIS REPORT FOR: cc: Gina Melton MD, Julie MD Deutch,Mukul Stoll. PhD ~ DOC #: [id number] Mukul Pablo, PhD DATE OF SERVICE: 12/20/2020 NEUROBEHAVIORAL STATUS EXAM ATTENDING PHYSICIAN: Dr. Dion Ortiz. PSYCH NURSE: Mukul Pablo, PhD CLINICAL PRESENTATION: The patient is a 70-year-old female initially admitted to the hospital with an elevated blood glucose level and lactic acidosis. She also had a right pneumothorax. Complications included atrial fibrillation with rapid ventricular rate and significant encephalopathy. An MRI did not reveal a stroke. Her assessment on admission to the rehabilitation unit was acute metabolic encephalopathy, hypoglycemic, hyperosmolar state, type 2 diabetes mellitus, right pneumothorax with chest tube, right posterior 7th and 8th rib fractures, pneumonia, hyponatremia, acute renal insufficiency, atrial fibrillation, obstructive sleep apnea and poor calorie malnutrition. A complete description of her medical condition history and medications can be found in her medical record. Neuropsychological consultation was requested to provide assistance in the assessment of cognitive and emotional status and provide recommendations and services. Prior to this most recent admission, the patient was living at home. She reports that she was managing her medication independently. Additionally, she has irritable bowel syndrome and discontinued her diabetic medication and management because of its effect on her IBS. The patient was driving and independent with instrumental activities of daily living. She has 3 children. 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 She has a master's degree in education. TECHNIQUES UTILIZED: Clinical interview, review of medical records, staff consultation and behavioral observation, mini mental status exam 2 standard version, clock drawing and verbal fluency assessment. EXAMINATION FINDINGS: The patient was alert and cooperative with the assessment. She accurately described events surrounding her admission. There [address] [address] CONSULTATION Name: HEDY SIMON Room #: 504-1 [facility] IN .R.#: [id number] Admission: 12/14/20 Attend Phys: Dion Ortiz MD Discharge: Date of : 46 Report #: [id number] is no evidence of aphasia. Her thoughts are logical and goal oriented. There is no evidence of thought disorder or suicidal ideation. She describes her symptoms to include sleep disorder, tiredness and fatigue, difficulty with memory and word finding. Appetite is within normal limits. She did not report depression or anxiety. Performance on the MMSE 2 brief version was at the 5th percentile with a T score 34. She was 3/3 for initial registration, 3/5 for orientation to time, 5/[address] and 2/3 for immediate recall of 3 items after a brief time delay and distraction. Performance on the MMSE 2 standard version was at the 2nd percentile with a raw score 23/30. She was 1/5 for serial sevens, 2/2 for naming, 1/1 for repetition, 3/3 for auditory comprehension. She could read and follow a single command, write a sentence and copy a simple geometric design. Clock drawing was within normal limits. Her performance on verbal fluency assessment reveals [id number] deficits. Letter fluency was a T score of 31, which is a percentile rank of 3. Category fluency was a T score of 29, which is a percentile rank of 2. Total fluency was a T score of 27, which is a percentile rank of 1. The patient is alert and oriented. Deficits are noted with sustained concentration and attention and verbal fluency often indicated and executive dysfunction. DIAGNOSTIC IMPRESSION: Neurocognitive disorder -- possibly due to vascular disease with impaired executive functioning, extent to be determined likely in the moderate range with planning and problem solving. RECOMMENDATIONS: The patient will benefit from a followup neuropsychological evaluation to clarify the extent of cognitive deficits upon discharge. Assistance will likely be necessary for the management of medication finances and nutrition. Driving should be discontinued until a more thorough evaluation can occur. Cognitive rehabilitation should focus on executive functioning. Thank you very much for allowing me to provide the consultation on this patient. Mukul Pablo, PhD NBD/KDA <ELECTRONICALLY SIGNED> By: Mukul Pablo, PhD 12/24/20 1246 [id number] Mukul Pablo, PhD /nt
--- NOTE | 2020-12-24 14:01 | NUR ---
cm sent pt and speech dc orders to [facility] outpt therapy. outpt therapy will call mauricio to set up visits.
== END 2020-12-24 13:00 | disposition home health service (06) | DRG 70 ==
PROVIDERS: Nurse Practitioner Family; ADMIT Physical Medicine & Rehabilitation; ATTEND Physical Medicine & Rehabilitation
DX: G93.41 Metabolic encephalopathy (principal); E11.00 Type 2 diabetes mellitus with hyperosmolarity without nonketotic hyperglycemic-hyperosmolar coma (NKHHC); J18.9 Pneumonia, unspecified organism; N17.9 Acute kidney failure, unspecified; E46 Unspecified protein-calorie malnutrition; E11.65 Type 2 diabetes mellitus with hyperglycemia; N18.9 Chronic kidney disease, unspecified; I48.91 Unspecified atrial fibrillation; G47.33 Obstructive sleep apnea (adult) (pediatric); K58.9 Irritable bowel syndrome, unspecified; E55.9 Vitamin D deficiency, unspecified
CPT/HCPCS: 10112

== ENCOUNTER → 2021-01-11 | Outpatient (CLI) | payer OTHER ==
[~2021-01-11] MED LIST changes: +BENTYL 10 MG CA10 M1 PO; +KONSYL6 GM PO; +LEVEMIR FL100 UNIT/2 SUBQ; +LIPITOR40 MG PO; +METAMUCIL660 GM PO; +TRAMADOL 50 MG50 MG PO; +VITAMIN D250 MC1 PO
== END ==
LOC: SJCVC 11:22
PROVIDERS: ATTEND Internal Medicine
DX: Z13.220 Encounter for screening for lipoid disorders (principal); R94.31 Abnormal electrocardiogram [ECG] [EKG]; I48.91 Unspecified atrial fibrillation; J45.909 Unspecified asthma, uncomplicated; E11.9 Type 2 diabetes mellitus without complications; E78.5 Hyperlipidemia, unspecified; I10 Essential (primary) hypertension; G43.909 Migraine, unspecified, not intractable, without status migrainosus; Z87.891 Personal history of nicotine dependence; Z88.1 Allergy status to other antibiotic agents; Z79.899 Other long term (current) drug therapy

== ENCOUNTER → 2021-01-18 | Outpatient (CLI) | payer OTHER | LOC: SJCVCIMAG 09:35 | PROVIDERS: ATTEND Internal Medicine | DX: I44.7 Left bundle-branch block, unspecified (principal); I10 Essential (primary) hypertension; J45.909 Unspecified asthma, uncomplicated; I48.91 Unspecified atrial fibrillation; E11.9 Type 2 diabetes mellitus without complications; G47.33 Obstructive sleep apnea (adult) (pediatric); I25.5 Ischemic cardiomyopathy; E78.5 Hyperlipidemia, unspecified; Z87.891 Personal history of nicotine dependence; Z79.899 Other long term (current) drug therapy; Z88.1 Allergy status to other antibiotic agents ==

== ENCOUNTER → 2021-02-08 | Outpatient (CLI) | payer OTHER | LOC: SJCVC 11:04 | PROVIDERS: ATTEND Internal Medicine | DX: I42.9 Cardiomyopathy, unspecified (principal); E11.9 Type 2 diabetes mellitus without complications; E78.5 Hyperlipidemia, unspecified; G47.33 Obstructive sleep apnea (adult) (pediatric); Z87.891 Personal history of nicotine dependence; Z88.1 Allergy status to other antibiotic agents; Z79.899 Other long term (current) drug therapy ==

== ENCOUNTER → 2021-03-29 | Outpatient (CLI) | payer OTHER | LOC: SJCVCIMAG 08:49 | PROVIDERS: ATTEND Internal Medicine | DX: I35.8 Other nonrheumatic aortic valve disorders (principal); I42.9 Cardiomyopathy, unspecified; E11.9 Type 2 diabetes mellitus without complications; E78.5 Hyperlipidemia, unspecified; G47.33 Obstructive sleep apnea (adult) (pediatric); Z87.891 Personal history of nicotine dependence; Z88.1 Allergy status to other antibiotic agents; Z79.899 Other long term (current) drug therapy ==

== ENCOUNTER → 2021-06-29 | Outpatient (CLI) | payer OTHER | END | disposition home or self-care (01) | LOC: SJCVCIMAG 09:10 | PROVIDERS: ATTEND Internal Medicine | DX: I35.8 Other nonrheumatic aortic valve disorders (principal); I51.7 Cardiomegaly; J45.909 Unspecified asthma, uncomplicated; E78.5 Hyperlipidemia, unspecified; I48.91 Unspecified atrial fibrillation; G47.33 Obstructive sleep apnea (adult) (pediatric); I10 Essential (primary) hypertension; Z79.899 Other long term (current) drug therapy; Z98.890 Other specified postprocedural states; Z88.8 Allergy status to other drugs, medicaments and biological substances; Z87.891 Personal history of nicotine dependence ==

== ENCOUNTER → 2021-09-20 | Outpatient (CLI) | payer OTHER | LOC: SJCVC 08:04 | PROVIDERS: ATTEND Internal Medicine Cardiovascular Disease | DX: E78.00 Pure hypercholesterolemia, unspecified (principal); J45.909 Unspecified asthma, uncomplicated; E78.5 Hyperlipidemia, unspecified; I10 Essential (primary) hypertension; G47.33 Obstructive sleep apnea (adult) (pediatric); F17.210 Nicotine dependence, cigarettes, uncomplicated; Z79.899 Other long term (current) drug therapy; Z79.4 Long term (current) use of insulin; Z88.1 Allergy status to other antibiotic agents ==